=== PATIENT | female | born 1935 | race Two or more races ===

== ENCOUNTER 2017-06-19 19:28 | Inpatient (IN) | payer MEDICARE ==
[~2017-06-19] VITALS: Ht 162.6 cm; Wt 59.0 kg
[~2017-06-19 19:28] MED LIST: NKM
[2017-06-19 19:30] VITALS: BP 138/78
--- NOTE | 2017-06-19 20:13 | Emergency Room Report ---
History of Present Illness General Chief Complaint: Pain Source: Patient, EMS Present Illness HPI This is a 80-year-old female with history of high blood pressure. She's been feeling weak for the last 2 weeks. Having a hard time getting in and out of her chair. She's been increasing edema. No fever or chills. Generalized body pain. No nausea no vomiting. No chest pain. Similar symptom in the past. No other complaint. Allergies: Coded Allergies: CODEINE (Verified Allergy, Unknown, 06/19/17) LATEX (Verified Allergy, Unknown, 06/19/17) PENICILLINS (Verified Allergy, Unknown, 06/19/17) Patient History Past Medical History: see triage record, old chart reviewed, HTN Past Surgical History: other Pertinent Family History: none Social History: Denies: smoking Now: No Immunizations: other Reviewed Nursing Documentation: PMH: Agreed, PSxH: Agreed Nursing Documentation-PMH Past Medical History: No History, Except For Hx Cardiac Problems: Yes - MURMUR, HF. "BLOCKAGE" Hx Diabetes: Yes Review of Systems Constitutional: Reports: weakness Eye: Denies: blurred vision, eye pain ENT: Denies: ear pain, nose congestion, throat swelling Respiratory: Denies: cough, shortness of breath Cardiovascular: Denies: chest pain, palpitations Gastrointestinal: Denies: abdominal pain, diarrhea, nausea, vomiting Musculoskeletal: Denies: back pain, joint pain Skin: Denies: rash Neurological: Denies: headache, numbness Endocrine: Denies: increased thirst, increased urine Hematologic/Lymphatic: Denies: easy bruising All Other Systems: negative except mentioned in HPI Physical Exam Vital Signs Date Time Temp Pulse Resp B/P Pulse Ox O2 Delivery O2 Flow Rate FiO2 06/19/17 19:17 98.4 78 16 138/78 98 Room Air vitals normal Sp02 EP Interpretation: reviewed, normal General Appearance: well appearing, no apparent distress, alert Head: normocephalic, atraumatic Eyes: bilateral eye EOMI, bilateral eye PERRL ENT: hearing grossly normal, normal pharynx Neck: full range of motion, supple, no meningismus Respiratory: chest non-tender, lungs clear, normal breath sounds Cardiovascular #1: regular rate, rhythm, no murmur Gastrointestinal: normal bowel sounds, non tender, no mass, no organomegaly, no bruit, non-distended Musculoskeletal: back normal, normal range of motion, other - 2+ edema Neurologic: alert, oriented x3 Psychiatric: mood/affect normal Skin: warm/dry Medical Decision Making Diagnostic Impression: Primary Impression: Failure to thrive in adult Additional Impressions: Polymyalgia rheumatica syndrome Pedal edema Hyperglycemia due to type 2 diabetes mellitus Qualified Codes: E11.65 - Type 2 diabetes mellitus with hyperglycemia Proteinuria Qualified Codes: R80.9 - Proteinuria, unspecified Dehydration ER Course Patient present with generalize weakness and inability to get out of chair or bed. Sedimentation rate elevated. She probably has PMR. Steroid initiated. No evidence of infection. No evidence of ACS, PE, dissection. She has bilateral pedal edema sole DVT unlikely. She's she lives alone, will admit for further workup and possible SNF placement. I contacted Dr. Fitzgerald for admission and Dr. Cerna for orders. Lab Results Impression labs with elevated sedimentation rat EKG Diagnostic Results EKG Time: 20:13 Rate: normal Rhythm: NSR ST Segments: no acute changes Rhythm Strip Diag. Results Rhythm Strip Time: 20:13 EP Interpretation: yes Rate: 97 Rhythm: NSR, no PVC's, no ectopy Chest X-Ray Diagnostic Results Chest X-Ray Diagnostic Results : Chest X-Ray Ordered: Yes # of Views/Limited/Complete: 1 View Indication: Shortness of Breath EP Interpretation: Yes Interpretation: no consolidation, no effusion, no pneumothorax, no acute cardiopulmonary disease Impression: No acute disease Last Vital Signs Date Time Temp Pulse Resp B/P Pulse Ox O2 Delivery O2 Flow Rate FiO2 06/19/17 19:17 98.4 78 16 138/78 98 Room Air Status: improved Disposition: ADMITTED INPATIENT Condition: Serious TRAV LEDEZMA M.D. Jun 19, 2017 20:13
[2017-06-19 20:26] LABS: BASOPHILS % (AUTO) 1.2 % (0.0-2.0); EOSINOPHILS % (AUTO) 0.6 % (0.0-3.0); LYMPHOCYTES % (AUTO) 11.4 % (20.0-45.0); MEAN CORPUSCULAR HGB CONC 35.2 G/DL (32.0-36.0); MEAN CORPUSCULAR VOLUME 85 FL (80-99); MEAN PLATELET VOLUME 10.9 FL (6.5-10.1); MONOCYTES % (AUTO) 9.7 % (1.0-10.0); PLATELET COUNT 188 K/UL (150-450); RED BLOOD COUNT 4.18 M/UL (4.20-5.40); RED CELL DISTRIBUTION WIDTH 11.7 % (11.6-14.8); WHITE BLOOD COUNT 11.8 K/UL (4.8-10.8)
[2017-06-19 20:35] LABS: INR 1.1 (0.9-1.1); PROTHROMBIN TIME 11.4 SEC (9.30-11.50)
[2017-06-19 20:41] LABS: TROPONIN I < 0.30 ng/mL (<=0.30)
[2017-06-19 20:44] LABS: ALANINE AMINOTRANSFERASE 12 U/L (3-33); ALBUMIN/GLOBULIN RATIO 0.9 (1.0-2.7); ANION GAP 18 (5-15); ASPARTATE AMINO TRANSFERASE 22 U/L (5-40); CALCIUM 10.2 mg/dL (8.6-10.2); CARBON DIOXIDE 26 mEQ/L (20-30); CHLORIDE 95 mEQ/L (98-107); CREATININE 1.1 mg/dL (0.5-0.9); HEMOLYSIS 34; POTASSIUM 3.5 mEQ/L (3.4-4.9); SODIUM 139 mEQ/L (135-145); TOTAL PROTEIN 7.6 g/dL (6.6-8.7)
[2017-06-19 20:55] LABS: CKMB 4.7 ng/mL (< 3.8)
[2017-06-19 20:58] LABS: BILIRUBIN,DIRECT 0.3 mg/dL (0.1-0.3)
[2017-06-19 21:13] LABS: APPEARANCE,URINE CLEAR; KETONES,URINE 2+ (NEGATIVE); LEUKOCYTE ESTERASE ,URINE NEGATIVE (NEGATIVE); NITRITE,URINE NEGATIVE (NEGATIVE); PH,URINE 5 (4.5-8.0); PROTEIN,URINE 2+ (NEGATIVE); UROBILINOGEN,URINE NORMAL MG/DL (0.0-1.0)
[2017-06-19 21:30] VITALS: BP 154/80
[2017-06-19 21:32] LABS: BACTERIA,URINE FEW /HPF; RBC,URINE 0-2 /HPF (0 - 2); SQUAMOUS EPITHELIAL CELL,UR FEW /LPF (NONE/OCC); WBC,URINE 0-2 /HPF (0 - 2)
[2017-06-19] MEDS ORDERED: PredniSONE 20mg tab ORAL ONE (21:45)
[2017-06-19] MEDS ORDERED: Miralax 17gm pkt ORAL PRN (22:15)
[2017-06-19] MEDS ORDERED: Zolpidem 5mg tab ORAL PRN (22:15)
[2017-06-19] MEDS ORDERED: Mylanta II UD 30ml ORAL PRN (22:15)
[2017-06-19] MEDS ORDERED: LORazepam Inj 2mg/ml 1ml IV PRN (22:15)
[2017-06-19 22:40] VITALS: BP 148/81
[2017-06-20] VITALS: BP 151/81
[2017-06-20 04:00] VITALS: BP 150/78
[2017-06-20] MEDS: NovoLOG Insulin Flexpen SUBQ SCH ×4 (05:51→21:17)
[2017-06-20 07:10] LABS: MEAN CORPUSCULAR HEMOGLOBIN 28.9 PG (27.0-31.0); MEAN CORPUSCULAR HGB CONC 33.8 G/DL (32.0-36.0); MEAN CORPUSCULAR VOLUME 85 FL (80-99); MEAN PLATELET VOLUME 10.7 FL (6.5-10.1); PLATELET COUNT 191 K/UL (150-450); RED BLOOD COUNT 3.94 M/UL (4.20-5.40); RED CELL DISTRIBUTION WIDTH 11.7 % (11.6-14.8); WHITE BLOOD COUNT 8.3 K/UL (4.8-10.8)
[2017-06-20 07:38] LABS: ALANINE AMINOTRANSFERASE 12 U/L (3-33); ANION GAP 16 (5-15); ASPARTATE AMINO TRANSFERASE 18 U/L (5-40); CALCIUM 9.3 mg/dL (8.6-10.2); CARBON DIOXIDE 28 mEQ/L (20-30); CHLORIDE 93 mEQ/L (98-107); CHOLESTEROL 128 mg/dL (< 200); CHOLESTEROL/HDL RATIO 3.3 (3.3-4.4); HEMOLYSIS 3; LDL CHOLESTEROL (CALC.) 75 mg/dL (60-99); POTASSIUM 3.4 mEQ/L (3.4-4.9); SODIUM 137 mEQ/L (135-145); TOTAL PROTEIN 6.8 g/dL (6.6-8.7)
[2017-06-20 08:57] LABS: LYMPHOCYTES % (MANUAL) 10 % (20-45); NEUTROPHILS % (MANUAL) 88 % (45-75); TOTAL CELLS COUNTED 100
[2017-06-20 08:58] LABS: BAND NEUTROPHILS % (MANUAL) 0 % (0-8); BASOPHILS % (MANUAL) 0 % (0-2); EOSINOPHILS % (MANUAL) 0 % (0-3); HYPOCHROMASIA 1+; PLATELET ESTIMATE ADEQUATE; PLATELET MORPHOLOGY NORMAL
[2017-06-20] MEDS: Levemir Flexpen SUBQ SCH ×2 (09:35→21:18)
[2017-06-20] MEDS: Heparin 5000 units/ml inj SUBQ SCH ×2 (09:37→21:19)
--- NOTE | 2017-06-20 10:41 | Diagnostic Imaging Report ---
Indication: SOB Technique: One view of the chest Comparison: none Findings: Lungs and pleural spaces are clear. The heart size is normal. There is thoracic scoliotic deformity. There are cholecystectomy clips. Impression: No acute process
--- NOTE | 2017-06-20 11:59 | Neurology Progress Note ---
Objective Physical Exam Last Vital Signs Date Time Temp Pulse Resp B/P Pulse Ox O2 Delivery O2 Flow Rate FiO2 06/20/17 04:00 97.9 93 21 150/78 95 Room Air Laboratory Tests Test 06/19/17 20:10 06/19/17 21:00 06/20/17 05:55 White Blood Count 11.8 K/UL (4.8-10.8) H 8.3 K/UL (4.8-10.8) Red Blood Count 4.18 M/UL (4.20-5.40) L 3.94 M/UL (4.20-5.40) L Hemoglobin 12.5 G/DL (12.0-16.0) 11.4 G/DL (12.0-16.0) L Hematocrit 35.6 % (37.0-47.0) L 33.6 % (37.0-47.0) L Mean Corpuscular Volume 85 FL (80-99) 85 FL (80-99) Mean Corpuscular Hemoglobin 30.0 PG (27.0-31.0) 28.9 PG (27.0-31.0) Mean Corpuscular Hemoglobin Concent 35.2 G/DL (32.0-36.0) 33.8 G/DL (32.0-36.0) Red Cell Distribution Width 11.7 % (11.6-14.8) 11.7 % (11.6-14.8) Platelet Count 188 K/UL (150-450) 191 K/UL (150-450) Mean Platelet Volume 10.9 FL (6.5-10.1) H 10.7 FL (6.5-10.1) H Neutrophils (%) (Auto) 77.0 % (45.0-75.0) H % (45.0-75.0) Lymphocytes (%) (Auto) 11.4 % (20.0-45.0) L % (20.0-45.0) Monocytes (%) (Auto) 9.7 % (1.0-10.0) % (1.0-10.0) Eosinophils (%) (Auto) 0.6 % (0.0-3.0) % (0.0-3.0) Basophils (%) (Auto) 1.2 % (0.0-2.0) % (0.0-2.0) Erythrocyte Sedimentation Rate 101 MM/HR (0-30) H Prothrombin Time 11.4 SEC (9.30-11.50) Prothromb Time International Ratio 1.1 (0.9-1.1) Activated Partial Thromboplast Time 30 SEC (23-33) Sodium Level 139 mEQ/L (135-145) 137 mEQ/L (135-145) Potassium Level 3.5 mEQ/L (3.4-4.9) 3.4 mEQ/L (3.4-4.9) Chloride Level 95 mEQ/L (98-107) L 93 mEQ/L (98-107) L Carbon Dioxide Level 26 mEQ/L (20-30) 28 mEQ/L (20-30) Anion Gap 18 (5-15) H 16 (5-15) H Blood Urea Nitrogen 26 mg/dL (7-23) H 26 mg/dL (7-23) H Creatinine 1.1 mg/dL (0.5-0.9) H 1.0 mg/dL (0.5-0.9) H Estimat Glomerular Filtration Rate mL/min (>60) mL/min (>60) Glucose Level 264 mg/dL (74-106) H 471 mg/dL (74-106) #H Calcium Level 10.2 mg/dL (8.6-10.2) 9.3 mg/dL (8.6-10.2) Total Bilirubin 1.1 mg/dL (0.0-1.2) 0.6 mg/dL (0.0-1.2) Direct Bilirubin 0.3 mg/dL (0.1-0.3) Aspartate Amino Transf (AST/SGOT) 22 U/L (5-40) 18 U/L (5-40) Alanine Aminotransferase (ALT/SGPT) 12 U/L (3-33) 12 U/L (3-33) Alkaline Phosphatase 73 U/L (35-104) 87 U/L (35-104) Total Creatine Kinase 248 U/L (26-140) H Creatine Kinase MB 4.7 ng/mL (< 3.8) H Creatine Kinase MB Relative Index 1.8 Troponin I < 0.30 ng/mL (<=0.30) Pro-B-Type Natriuretic Peptide 285 pg/mL (0-450) Total Protein 7.6 g/dL (6.6-8.7) 6.8 g/dL (6.6-8.7) Albumin 3.6 g/dL (3.5-5.2) 3.4 g/dL (3.5-5.2) L Globulin 4.0 g/dL 3.4 g/dL Albumin/Globulin Ratio 0.9 (1.0-2.7) L 1.0 (1.0-2.7) Urine Color Pale yellow Urine Appearance Clear Urine pH 5 (4.5-8.0) Urine Specific [place] 1.010 (1.005-1.035) Urine Protein 2+ (NEGATIVE) H Urine Glucose (UA) 1+ (NEGATIVE) H Urine Ketones 2+ (NEGATIVE) H Urine Occult Blood 2+ (NEGATIVE) H Urine Nitrite Negative (NEGATIVE) Urine Bilirubin Negative (NEGATIVE) Urine Urobilinogen Normal MG/DL (0.0-1.0) Urine Leukocyte Esterase Negative (NEGATIVE) Urine RBC 0-2 /HPF (0 - 2) Urine WBC 0-2 /HPF (0 - 2) Urine Squamous Epithelial Cells Few /LPF (NONE/OCC) Urine Bacteria Few /HPF (NONE) Differential Total Cells Counted 100 Neutrophils % (Manual) 88 % (45-75) H Lymphocytes % (Manual) 10 % (20-45) L Monocytes % (Manual) 2 % (1-10) Eosinophils % (Manual) 0 % (0-3) Basophils % (Manual) 0 % (0-2) Band Neutrophils 0 % (0-8) Platelet Estimate Adequate Platelet Morphology Normal Hypochromasia 1+ Triglycerides Level 69 mg/dL (< 150) Cholesterol Level 128 mg/dL (< 200) LDL Cholesterol 75 mg/dL (60-99) HDL Cholesterol 39 mg/dL (> 60) Cholesterol/HDL Ratio 3.3 (3.3-4.4) Impression/Recommendations Problems: (1) Diabetic sensorimotor polyneuropathy (2) Paranoid ideation (3) Pedal edema (4) Polymyalgia rheumatica syndrome (5) Failure to thrive in adult (6) Hyperglycemia due to type 2 diabetes mellitus Status: unchanged Recommendations #[id number] SIMON Martinez Jun 20, 2017 11:59
[2017-06-20 12:00] VITALS: BP 142/77
--- NOTE | 2017-06-20 15:13 | Diagnostic Imaging Report ---
Indication: PAIN Technique: 3 views of the right shoulder Comparison: none Findings: There is inferior acromial spurring demonstrated. No acute fracture. Joint spaces are preserved. Bones are osteoporotic Impression:Osteoporosis. No definite acute process
--- NOTE | 2017-06-20 15:42 | Consultation ---
History of Present Illness General Date patient seen: Jun 20, 2017 Chief Complaint: Pain Reason for Consultation: inpatient management Present Illness HPI 80-year-old female with history of high blood pressure, DM presented to [facility] [place] with CC of feeling weak for the last 2 weeks. Having a hard time getting in and out of her chair and increasing edema. No fever or chills. Generalized body pain. No nausea no vomiting. No chest pain. Similar symptom in the past. No other complaint. Her ESR was > 100. Allergies: Coded Allergies: CODEINE (Verified Allergy, Unknown, 06/19/17) LATEX (Verified Allergy, Unknown, 06/19/17) PENICILLINS (Verified Allergy, Unknown, 06/19/17) Medication History Scheduled No Known Medications* (NKM - No Known Medications*), 0 ., (Reported) Patient History Healthcare decision maker Resuscitation status Chemical (Meds Only) Advanced Directive on File Past Medical/Surgical History Past Medical/Surgical History: (1) Diabetes mellitus (2) Hypertension (3) Paranoid ideation Review of Systems All Other Systems: negative except mentioned in HPI Physical Exam General Appearance: WD/WN, lethargic Lines, tubes and drains: peripheral, central line HEENT: normocephalic, atraumatic Neck: non-tender, normal alignment Respiratory/Chest: chest wall non-tender, lungs clear, no respiratory distress Breasts: no masses Cardiovascular/Chest: normal peripheral pulses, normal rate Abdomen: normal bowel sounds, non tender, soft, hyperactive bowel sounds Genitourinary/Rectal: normal genital exam, normal rectal exam Extremities: normal range of motion, non-tender Skin Exam: warm/dry 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, no motor/sensory deficits Last 24 Hour Vital Signs Date Time Temp Pulse Resp B/P Pulse Ox O2 Delivery O2 Flow Rate FiO2 06/20/17 12:00 97.8 91 20 142/77 97 Room Air 06/20/17 04:00 97.9 93 21 150/78 95 Room Air 06/20/17 00:00 97.7 100 21 151/81 97 Room Air 06/19/17 22:40 98.4 96 16 148/81 98 Room Air 06/19/17 22:40 98.4 96 16 148/81 98 Room Air 06/19/17 21:30 98.4 94 18 154/80 98 Room Air 06/19/17 19:30 98.4 98 16 138/78 98 Room Air 06/19/17 19:17 98.4 78 16 138/78 98 Room Air Intake and Output 06/19/17 06/20/17 19:00 07:00 Intake Total 250 ml Balance 250 ml Intake Other 250 ml # Voids 4 Laboratory Tests Test 06/19/17 20:10 06/19/17 21:00 06/20/17 05:55 White Blood Count 11.8 K/UL (4.8-10.8) H 8.3 K/UL (4.8-10.8) Red Blood Count 4.18 M/UL (4.20-5.40) L 3.94 M/UL (4.20-5.40) L Hemoglobin 12.5 G/DL (12.0-16.0) 11.4 G/DL (12.0-16.0) L Hematocrit 35.6 % (37.0-47.0) L 33.6 % (37.0-47.0) L Mean Corpuscular Volume 85 FL (80-99) 85 FL (80-99) Mean Corpuscular Hemoglobin 30.0 PG (27.0-31.0) 28.9 PG (27.0-31.0) Mean Corpuscular Hemoglobin Concent 35.2 G/DL (32.0-36.0) 33.8 G/DL (32.0-36.0) Red Cell Distribution Width 11.7 % (11.6-14.8) 11.7 % (11.6-14.8) Platelet Count 188 K/UL (150-450) 191 K/UL (150-450) Mean Platelet Volume 10.9 FL (6.5-10.1) H 10.7 FL (6.5-10.1) H Neutrophils (%) (Auto) 77.0 % (45.0-75.0) H % (45.0-75.0) Lymphocytes (%) (Auto) 11.4 % (20.0-45.0) L % (20.0-45.0) Monocytes (%) (Auto) 9.7 % (1.0-10.0) % (1.0-10.0) Eosinophils (%) (Auto) 0.6 % (0.0-3.0) % (0.0-3.0) Basophils (%) (Auto) 1.2 % (0.0-2.0) % (0.0-2.0) Erythrocyte Sedimentation Rate 101 MM/HR (0-30) H Prothrombin Time 11.4 SEC (9.30-11.50) Prothromb Time International Ratio 1.1 (0.9-1.1) Activated Partial Thromboplast Time 30 SEC (23-33) Sodium Level 139 mEQ/L (135-145) 137 mEQ/L (135-145) Potassium Level 3.5 mEQ/L (3.4-4.9) 3.4 mEQ/L (3.4-4.9) Chloride Level 95 mEQ/L (98-107) L 93 mEQ/L (98-107) L Carbon Dioxide Level 26 mEQ/L (20-30) 28 mEQ/L (20-30) Anion Gap 18 (5-15) H 16 (5-15) H Blood Urea Nitrogen 26 mg/dL (7-23) H 26 mg/dL (7-23) H Creatinine 1.1 mg/dL (0.5-0.9) H 1.0 mg/dL (0.5-0.9) H Estimat Glomerular Filtration Rate mL/min (>60) mL/min (>60) Glucose Level 264 mg/dL (74-106) H 471 mg/dL (74-106) #H Calcium Level 10.2 mg/dL (8.6-10.2) 9.3 mg/dL (8.6-10.2) Total Bilirubin 1.1 mg/dL (0.0-1.2) 0.6 mg/dL (0.0-1.2) Direct Bilirubin 0.3 mg/dL (0.1-0.3) Aspartate Amino Transf (AST/SGOT) 22 U/L (5-40) 18 U/L (5-40) Alanine Aminotransferase (ALT/SGPT) 12 U/L (3-33) 12 U/L (3-33) Alkaline Phosphatase 73 U/L (35-104) 87 U/L (35-104) Total Creatine Kinase 248 U/L (26-140) H Creatine Kinase MB 4.7 ng/mL (< 3.8) H Creatine Kinase MB Relative Index 1.8 Troponin I < 0.30 ng/mL (<=0.30) Pro-B-Type Natriuretic Peptide 285 pg/mL (0-450) Total Protein 7.6 g/dL (6.6-8.7) 6.8 g/dL (6.6-8.7) Albumin 3.6 g/dL (3.5-5.2) 3.4 g/dL (3.5-5.2) L Globulin 4.0 g/dL 3.4 g/dL Albumin/Globulin Ratio 0.9 (1.0-2.7) L 1.0 (1.0-2.7) Urine Color Pale yellow Urine Appearance Clear Urine pH 5 (4.5-8.0) Urine Specific [place] 1.010 (1.005-1.035) Urine Protein 2+ (NEGATIVE) H Urine Glucose (UA) 1+ (NEGATIVE) H Urine Ketones 2+ (NEGATIVE) H Urine Occult Blood 2+ (NEGATIVE) H Urine Nitrite Negative (NEGATIVE) Urine Bilirubin Negative (NEGATIVE) Urine Urobilinogen Normal MG/DL (0.0-1.0) Urine Leukocyte Esterase Negative (NEGATIVE) Urine RBC 0-2 /HPF (0 - 2) Urine WBC 0-2 /HPF (0 - 2) Urine Squamous Epithelial Cells Few /LPF (NONE/OCC) Urine Bacteria Few /HPF (NONE) Differential Total Cells Counted 100 Neutrophils % (Manual) 88 % (45-75) H Lymphocytes % (Manual) 10 % (20-45) L Monocytes % (Manual) 2 % (1-10) Eosinophils % (Manual) 0 % (0-3) Basophils % (Manual) 0 % (0-2) Band Neutrophils 0 % (0-8) Platelet Estimate Adequate Platelet Morphology Normal Hypochromasia 1+ Triglycerides Level 69 mg/dL (< 150) Cholesterol Level 128 mg/dL (< 200) LDL Cholesterol 75 mg/dL (60-99) HDL Cholesterol 39 mg/dL (> 60) Cholesterol/HDL Ratio 3.3 (3.3-4.4) Height (Feet): 5 Height (Inches): 4.00 Weight (Pounds): 130 Medications Current Medications Medications (Trade) Dose Ordered Sig/Piyush Route PRN Reason Start Time Stop Time Status Last Admin Dose Admin Acetaminophen (Tylenol) 650 mg Q4H PRN ORAL fever 06/19/17 22:15 07/19/17 22:14 Acetaminophen (Tylenol) 650 mg Q6H PRN ORAL Mild Pain (Pain Scale 1-3) 06/19/17 22:30 07/19/17 22:29 Al Hydroxide/Mg Hydroxide (Mylanta II) 30 ml Q6H PRN ORAL dyspepsia 06/19/17 22:15 07/19/17 22:14 Amlodipine Besylate (Norvasc) 5 mg DAILY ORAL 06/21/17 09:00 07/21/17 08:59 Clonidine HCl (Catapres) 0.1 mg Q2H PRN ORAL SBP > 170 06/20/17 15:00 07/20/17 14:59 Dextrose (Dextrose 50%) STAT PRN IV Hypoglycemia 06/19/17 22:15 07/19/17 22:14 Heparin Sodium (Porcine) (Heparin 5000 units/ml) 5,000 units EVERY 12 HOURS SUBQ 06/20/17 09:00 07/20/17 08:59 06/20/17 09:37 Insulin Aspart (NovoLOG) BEFORE MEALS AND HS SUBQ 06/20/17 06:30 07/20/17 06:29 06/20/17 11:23 Insulin Detemir (Levemir) 15 units Q12HR SUBQ 06/20/17 09:00 07/20/17 08:59 06/20/17 09:35 Lorazepam (Ativan 2mg/ml 1ml) 0.5 mg Q4H PRN IV For Anxiety 06/19/17 22:15 06/26/17 22:14 Ondansetron HCl (Zofran) 4 mg Q6H PRN IVP Nausea & Vomiting 06/19/17 22:15 07/19/17 22:14 Polyethylene Glycol (Miralax) 17 gm HSPRN PRN ORAL Constipation 06/19/17 22:15 07/19/17 22:14 Zolpidem Tartrate (Ambien) 5 mg HSPRN PRN ORAL Insomnia 06/19/17 22:15 07/19/17 22:14 Assessment/Plan Problem List: (1) Pedal edema ICD Codes: R60.0 - Localized edema SNOMED: 689322954 (2) Failure to thrive in adult ICD Codes: R62.7 - Adult failure to thrive SNOMED: 656921573, 71978003 (3) Diabetic sensorimotor polyneuropathy ICD Codes: E11.42 - Type 2 diabetes mellitus with diabetic polyneuropathy SNOMED: 71189591, 242634206 (4) Polymyalgia rheumatica syndrome ICD Codes: M35.3 - Polymyalgia rheumatica SNOMED: 43494830, 97746855 (5) Diabetes mellitus ICD Codes: E11.9 - Type 2 diabetes mellitus without complications SNOMED: 83391183 (6) Hypertension ICD Codes: I10 - Essential (primary) hypertension SNOMED: 59236749 Assessment/Plan pt/ ot neuro/ Rheumatology evaluation sliding scale check cpk f/u ESR f/u electrolytes SHAMEKA OVALLES Jun 20, 2017 15:42
[2017-06-20 16:00] VITALS: BP 144/77
--- NOTE | 2017-06-20 17:58 | Cardiology Report ---
APPROVED REPORT EXAM: Two-dimensional and M-mode echocardiogram with Doppler and color Doppler. INDICATION Left ventricular function M-Mode DIMENSIONS IVSd1.0 (0.7-1.1cm)Left Atrium (MM)3.8 (1.6-4.0cm) LVDd2.3 (3.5-5.6cm)Aortic Root2.8 (2.0-3.7cm) PWd1.1 (0.7-1.1cm)Aortic Cusp Exc.1.8 (1.5-2.0cm) LVDs0.4 (2.5-4.0cm) PWs1.1 cm Normal left ventricular chamber size, systolic function and wall motion. Left ventricular ejection fraction estimated to be 70-75%. Moderate left ventricular hypertrophy. No evidence of pericardial fat or effusion. All other cardiac chamber sizes are within normal limits. Focal aortic valve sclerosis with adequate cusp excursion Thickened mitral valve leaflets with normal excursion. Mitral annulus and aortic root calcification. Pulmonic valve not well visualized. Normal tricuspid valve structure. IVC is normal in size with physiologic collapse. A color flow and spectral Doppler study was performed and revealed: No aortic regurgitation. Mild mitral regurgitation. Left ventricular diastolic dysfunction grade 1. No tricuspid regurgitation. Tricuspid systolic velocities suggests peak right ventricular systolic pressure of 21 mmHg
--- NOTE | 2017-06-20 18:10 | Cardiology Report ---
APPROVED REPORT EKG Measurement Heart [id number] Sinus rhythm RBBB Arm lead reversal T wave abnormality, consider inferior ischemia T wave abnormality, consider RV strain Abnormal ECG
--- NOTE | 2017-06-20 19:15 | History and Physical Report ---
DATE OF ADMISSION: 06/19/2017 TIME SEEN: 1 p.m. CONSULTANTS: 1. Ashly Cerna M.D. 2. Alex Morris M.D. 3. Marco Antonio Potts M.D. CHIEF COMPLAINT: Failure to thrive, weakness, elevated ESR, diabetes, and hypertension. BRIEF HISTORY: The patient is a 80-year-old female, who lives at home by herself, presented with increased weakness and lethargy, not eating well, the patient diagnosed with the above, elevated ESR, admitted to medical floor for further treatment, currently slightly weak in bed, no complaints. PAST MEDICAL HISTORY: Includes diabetes and hypertension. PAST SURGICAL HISTORY: Gallbladder and hysterectomy. MEDICATIONS: Heparin, Levemir, NovoLog, Tylenol, MiraLax, Zofran, Ambien, Ativan, and Mylanta. ALLERGIES: Penicillin and codeine. SOCIAL HISTORY: No smoking. No alcohol. No intravenous drug abuse. FAMILY HISTORY: Noncontributory. REVIEW OF SYSTEMS: No chest pain. No shortness of breath. No nausea, vomiting, or diarrhea. PHYSICAL EXAMINATION: GENERAL: Calm in bed, alert and oriented x3, in no acute distress. VITAL SIGNS: Temperature is 97 degrees, pulse 91, respirations 20, and blood pressure 142/77. CARDIOVASCULAR: No murmurs. LUNGS: Distant and clear. ABDOMEN: Bowel sound positive. Nontender and nondistended. EXTREMITIES: No cyanosis, clubbing, or edema. NEUROLOGIC: Cranial nerves II through XII grossly intact. Deep tendon reflexes are 2+. Muscle strength is 4/5, slightly weak. LABORATORY DATA: Hemoglobin 11.4, otherwise CBC is normal. Chloride is 93. BUN and creatinine 23 and 1.0. Glucose is 471. INR is 1.1. Urinalysis, 2+ occult blood and 1+ glucose. ASSESSMENT: 1. Failure to thrive. 2. Weakness. 3. Anemia. 4. ESR elevation. 5. Diabetes with hyperglycemia. 6. Hypertension. PLAN: 1. Blood pressure and blood sugar control. 2. Dietary followup. 3. OT/OT. 4. Dietary evaluation. 5. CBC and BMP in the morning. Dr. Cerna, Dr. Morris, Dr. Marco Antonio Potts to consult. We will continue to follow this patient. Pranav Fitzgerald D.O. DR: OSCAR JOB#: [id number] CC:
[2017-06-20 20:00] VITALS: BP 153/85
--- NOTE | 2017-06-20 20:45 | Consultation ---
DATE OF CONSULTATION: 06/20/2017 NEUROLOGICAL CONSULTATION CONSULTING PHYSICIAN: Alex Morris M.D. REQUESTING PHYSICIAN: Pranav Fitzgerald D.O. HISTORY OF PRESENT ILLNESS: The patient is a 80-year-old female, seen in neurological consultation to evaluate progressive generalized weakness and pain. The patient indicated that symptoms have progressed within the last couple of weeks, that she is unable to get out of her bed, she developed swelling in her both feet and ankles. The patient was brought to the emergency room. Her vital signs were stable. Her initial diagnostic studies included chest x-ray with no acute process. There was thoracic scoliotic deformity noted and cholecystectomy clips noted. Laboratory work included CBC study with WBC 11.8. Sedimentation rate of 101. Coagulation panel was normal. Urinalysis, 2+ ketones, 2+ protein. Chemistry panel with elevated BUN of 26 and creatinine 1.1. Blood sugar 264. CK 248 and CK-MB 4.7. Normal lipid panel. The patient is started on steroids and repeat study revealed blood sugar of 471. Following admission until present, there were not much changes except slightly reduced swelling. Current treatment included torsemide, heparin, insulin, Tylenol p.r.n., Ativan p.r.n., Zofran p.r.n. 40 mg daily. The patient indicated that in the past she had a workmen's compensation injury to the right lower extremity following which she had a constant swelling in the right ankle. For several years she is suffering from intermittent off and on chest pain, soreness throughout the chest area, intermittent sharp pain " " . For the last couple weeks intermittent dry cough with chills, severe pain, numbness, and tingling in both upper and lower extremities, swelling on the both feet, involuntary jerks of lower extremities. Previously diagnosed with fibromyalgia, although other etiologies were also suggested. She had a brief trial of steroids in the past but felt that steroids are harming her so she stopped it but then again two months ago she was taken to [facility] Emergency Room, she was just followed the one week of steroids to give temporary relief. PAST MEDICAL HISTORY: History of hypertension and history of diabetes with diabetic polyneuropathy. She has history of hysterectomy , degenerative joint disease. MEDICATIONS: Treatment at home, the patient has no recollection except "water pill". FAMILY HISTORY: Noncontributory. SOCIAL HISTORY: The patient lives alone. She has a daughter who is in town who is very sick and has some sort of arthritis, unable to help her out. No alcohol. No drug abuse. Nonsmoker. REVIEW OF SYMPTOMS: A 14-point review of symptoms was obtained, this was negative except those in the history of present illness. PHYSICAL EXAMINATION: GENERAL: This is a well-developed, somewhat cachectic appearing female, lying comfortably in bed. VITAL SIGNS: Vital signs are stable. Blood pressure 150/78, temperature 97.9 degrees, and heart rate of 93. HEENT: Head, normocephalic. There is a palpable tenderness about the TMJs and base of skull. No deformities noted. NECK: Tender on palpation bilaterally. EXTREMITIES: Generalized aches and pain on palpation of both upper and lower extremities and upper and low back. Tenderness to palpation both ankles, swelling 2+ right ankle and 1+ left ankle. Peripheral pulses 1+, symmetric. MENTAL STATUS: She is alert and oriented x3 with no evidence of aphasia or apraxia, claiming that the doctors never paid attention to her. 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 CRANIAL NERVE II: Pupils are 2 mm responding to light and accommodation. Visual barrientos are full on confrontation. Fundi poorly visualized. CRANIAL NERVE V: Normal corneal responses. CRANIAL NERVE VII: No facial asymmetry. CRANIAL NERVE VIII: Normal hearing. CRANIAL NERVE IX THROUGH XII: Tongue is in midline. Symmetric palate elevation. MOTOR EXAMINATION: Limited range of motion of the right shoulder due to pain and deformity. Able to lift arms against the gravity, but felt uncomfortable with aches and pains. Strength diffusely decreased 5-/5. Deep tendon reflexes absent in both biceps, triceps, brachioradialis, knee, and ankle jerks. Plantar responses flexor. SENSORY EXAMINATION: Decreased response to pin stimulation below the knees with reduced proprioception both feet. COORDINATION: Clumsy [id number] and [id number] test bilaterally. GAIT: Able to stand up and walk, but with assistance. IMPRESSION: 1. Chronic generalized aches and pains, unknown etiology, rule out collagen vascular disease, rule out polymyalgia rheumatica, rule out fibromyalgia. 2. Diabetic polyneuropathy. 3. Renal insufficiency. 4. Insulin-dependent diabetes mellitus. 5. Hypertension. 6. Paranoid ideation. 7. History of cervical and lumbar diskogenic disease and thoracic scoliosis. 8. Malnutrition. DISCUSSION: The patient has a persistent diabetic neuropathy, currently presenting with sensory loss and areflexia on both upper and lower extremities. In addition, the patient has intermittent generalized aches and pains, elevated sedimentation rate, suspected to have collagen vascular disease, polymyalgia rheumatica, certainly rheumatology assessment for more detailed evaluation will be necessary. Steroids initiated but producing severe hyperglycemia. We will request PT/OT, speech therapy, and nutrition. 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 Treatment will include steroids as per Rheumatology, in addition to aspirin and Ecotrin. Get a Psychiatry evaluation to assess underlying paranoid delusion. Thank you for allowing me to see this interesting patient in neurological consultation. Alex Morris M.D. DR: PARRISH JOB#: [id number] CC:
--- NOTE | 2017-06-20 21:16 | Cardiac Electrophysiology PN ---
Subjective Subjective [id number] Objective Last 24 Hour Vital Signs Date Time Temp Pulse Resp B/P Pulse Ox O2 Delivery O2 Flow Rate FiO2 06/20/17 20:00 97.2 20 153/85 99 Room Air 06/20/17 16:00 97.0 85 16 144/77 99 Room Air 06/20/17 12:00 97.8 91 20 142/77 97 Room Air 06/20/17 04:00 97.9 93 21 150/78 95 Room Air 06/20/17 00:00 97.7 100 21 151/81 97 Room Air 06/19/17 22:40 98.4 96 16 148/81 98 Room Air 06/19/17 22:40 98.4 96 16 148/81 98 Room Air 06/19/17 21:30 98.4 94 18 154/80 98 Room Air Intake and Output 06/19/17 06/20/17 19:00 07:00 Intake Total 250 ml Balance 250 ml Other 250 ml # Voids 4 Laboratory Tests Test 06/20/17 05:55 White Blood Count 8.3 K/UL (4.8-10.8) Red Blood Count 3.94 M/UL (4.20-5.40) L Hemoglobin 11.4 G/DL (12.0-16.0) L Hematocrit 33.6 % (37.0-47.0) L Mean Corpuscular Volume 85 FL (80-99) Mean Corpuscular Hemoglobin 28.9 PG (27.0-31.0) Mean Corpuscular Hemoglobin Concent 33.8 G/DL (32.0-36.0) Red Cell Distribution Width 11.7 % (11.6-14.8) Platelet Count 191 K/UL (150-450) Mean Platelet Volume 10.7 FL (6.5-10.1) H Neutrophils (%) (Auto) % (45.0-75.0) Lymphocytes (%) (Auto) % (20.0-45.0) Monocytes (%) (Auto) % (1.0-10.0) Eosinophils (%) (Auto) % (0.0-3.0) Basophils (%) (Auto) % (0.0-2.0) Differential Total Cells Counted 100 Neutrophils % (Manual) 88 % (45-75) H Lymphocytes % (Manual) 10 % (20-45) L Monocytes % (Manual) 2 % (1-10) Eosinophils % (Manual) 0 % (0-3) Basophils % (Manual) 0 % (0-2) Band Neutrophils 0 % (0-8) Platelet Estimate Adequate Platelet Morphology Normal Hypochromasia 1+ Sodium Level 137 mEQ/L (135-145) Potassium Level 3.4 mEQ/L (3.4-4.9) Chloride Level 93 mEQ/L (98-107) L Carbon Dioxide Level 28 mEQ/L (20-30) Anion Gap 16 (5-15) H Blood Urea Nitrogen 26 mg/dL (7-23) H Creatinine 1.0 mg/dL (0.5-0.9) H Estimat Glomerular Filtration Rate mL/min (>60) Glucose Level 471 mg/dL (74-106) #H Calcium Level 9.3 mg/dL (8.6-10.2) Total Bilirubin 0.6 mg/dL (0.0-1.2) Aspartate Amino Transf (AST/SGOT) 18 U/L (5-40) Alanine Aminotransferase (ALT/SGPT) 12 U/L (3-33) Alkaline Phosphatase 87 U/L (35-104) Total Protein 6.8 g/dL (6.6-8.7) Albumin 3.4 g/dL (3.5-5.2) L Globulin 3.4 g/dL Albumin/Globulin Ratio 1.0 (1.0-2.7) Triglycerides Level 69 mg/dL (< 150) Cholesterol Level 128 mg/dL (< 200) LDL Cholesterol 75 mg/dL (60-99) HDL Cholesterol 39 mg/dL (> 60) Cholesterol/HDL Ratio 3.3 (3.3-4.4) KARIE FAN Jun 20, 2017 21:16
[2017-06-21] VITALS: BP 136/60
[2017-06-21 04:00] VITALS: BP 141/68
--- NOTE | 2017-06-21 05:45 | Consultation ---
DATE OF CONSULTATION: NOTE: POOR AUDIO QUALITY ENDOCRINOLOGY CONSULTATION REFERRING PHYSICIAN: Pranav Fitzgerald D.O. CONSULTING PHYSICIAN: Grant Camacho M.D. REASON FOR CONSULTATION: I was asked to see this 80-year-old black female by Dr. Pranav Fitzgerald in endocrinology consultation for evaluation and management for type 2 diabetes mellitus out of control. PERTINENT HISTORY: The patient has been diabetic for several years, on various doses of medications requested. She is put on dietary control, but she insulin several years for glucose blood work q.12 h. The patient denies polyuria, polydipsia, neuropathic pain in the lower extremities. PAST MEDICAL HISTORY: . FAMILY HISTORY: Unremarkable. PERSONAL HISTORY: Negative for tobacco, alcohol, or drug abuse. REVIEW OF SYSTEMS: A 14-point review is unremarkable. PHYSICAL EXAMINATION: GENERAL: The patient is in no acute distress. VITAL SIGNS: Blood pressure 115/85, pulse and temperature 97.3 degrees. HEENT: . Ears, nose, and throat are negative. NECK: No thyroid gland is palpable. LUNGS: Clear. CARDIOVASCULAR: Heart sounds are regular. ABDOMEN: Soft. Bowel sounds present. EXTREMITIES: . Reflexes intact, but toes downgoing to plantar stimulation. . ASSESSMENT: 1. Diabetes type 2, uncontrolled. 2. Diabetic peripheral neuropathy. PLAN: We will continue the patient with Levemir 10 units q.12 h. and NovoLog q.i.d. before meals and at bedtime. She is stable for discharge on 06/21/2017 by her primary physician. The patient's hemoglobin A1c level is pending. Grant Camacho M.D. DR: Naida JOB#: [id number] CC:
[2017-06-21] MEDS: NovoLOG Insulin Flexpen SUBQ SCH ×4 (06:12→21:42)
--- NOTE | 2017-06-21 07:00 | Consultation ---
DATE OF CONSULTATION: 06/20/2017 CARDIOLOGY CONSULTATION REFERRING PHYSICIAN: Pranav Fitzgerald D.O. REASON FOR CONSULTATION: Management of hypertension. HISTORY OF PRESENT ILLNESS: The patient is a 80-year-old lady, who developed progressive weakness for the last couple of weeks. The patient has scoliotic deformity in her thorax, status post hysterectomy. In the emergency room, the patient's sedimentation was more than 100 and WBCs of 11.8, also history of right ankle swelling due to injury to the right lower extremity. The patient also is complaining of tingling and numbness in both upper and lower extremities and swelling of both feet. The patient has a history of fibromyalgia as well for which she was treated with steroids in the past. REVIEW OF SYSTEMS: Negative other than what was mentioned in the history of present illness. PAST MEDICAL HISTORY: 1. Hypertension, diabetes, and diabetic neuropathy. 2. Degenerative joint disease. 3. History of hysterectomy. MEDICATION: Per reconciliation. FAMILY HISTORY: Noncontributory. SOCIAL HISTORY: She lives alone. Does not smoke or drink alcohol. Nonsmoker. PHYSICAL EXAMINATION: VITAL SIGNS: Blood pressure is 122/85, pulse is 85, respirations 20, and temperature is 97.2 degrees. HEAD AND NECK: Shows no JVD. LUNGS: Decreased breath sounds. CARDIOVASCULAR: Regular S1 and S2 with no gallop. ABDOMEN: Soft. EXTREMITIES: There is 1+ pitting edema. LABORATORY DATA: . Sodium 137, potassium 3.4, BUN of 26, creatinine 1, and glucose is 471. Troponin is negative. CK is 248. Repeat INR is 1.1. Urinalysis is negative. ASSESSMENT AND PLAN: 1. Hypertension. The patient was started on Norvasc 5 mg daily. Patient on clonidine 0.1 mg every two hours p.r.n. If the blood pressure is still elevated, we will increase Norvasc to 5 mg b.i.d. The patient also underwent an echocardiogram and preliminary report showed that the patient's ejection fraction is 70% to 75%. 2. Diabetes. 3. Generalized weakness. 4. Sedimentation rate of more than 100. 5. History of paranoid ideation. 6. Polymyalgia rheumatica. 7. Diabetic polyneuropathy. Thank you very much, Dr. Fitzgerald, for allowing me to participate in the care of this patient. Please do not hesitate to contact me for any questions regarding my evaluation. Marco Antonio Potts M.D. DR: Reese JOB#: [id number] CC:
[2017-06-21 08:00] VITALS: BP 130/50
[2017-06-21] MEDS: Heparin 5000 units/ml inj SUBQ SCH ×2 (09:40→21:43)
[2017-06-21] MEDS: Levemir Flexpen SUBQ SCH ×2 (09:41→21:42)
[2017-06-21 10:49] LABS: BASOPHILS % (AUTO) 0.7 % (0.0-2.0); EOSINOPHILS % (AUTO) 2.2 % (0.0-3.0); LYMPHOCYTES % (AUTO) 26.6 % (20.0-45.0); MEAN CORPUSCULAR HEMOGLOBIN 27.6 PG (27.0-31.0); MEAN CORPUSCULAR HGB CONC 32.8 G/DL (32.0-36.0); MEAN CORPUSCULAR VOLUME 84 FL (80-99); MEAN PLATELET VOLUME 10.6 FL (6.5-10.1); MONOCYTES % (AUTO) 9.3 % (1.0-10.0); NEUTROPHILS % (AUTO) 61.2 % (45.0-75.0); PLATELET COUNT 209 K/UL (150-450); RED BLOOD COUNT 4.09 M/UL (4.20-5.40); RED CELL DISTRIBUTION WIDTH 11.4 % (11.6-14.8); WHITE BLOOD COUNT 10.9 K/UL (4.8-10.8)
[2017-06-21 11:05] LABS: ANION GAP 12 (5-15); CALCIUM 9.2 mg/dL (8.6-10.2); CARBON DIOXIDE 31 mEQ/L (20-30); CHLORIDE 101 mEQ/L (98-107); CREATININE 0.7 mg/dL (0.5-0.9); HEMOLYSIS 1; SODIUM 144 mEQ/L (135-145)
[2017-06-21 11:06] LABS: CRP QUANT 6.7 mg/dL (< 0.5)
[2017-06-21 11:09] LABS: POTASSIUM 2.6 mEQ/L (3.4-4.9)
[2017-06-21 11:16] LABS: THYROID STIMULATING HORMONE 1.52 uIU/mL (0.300-4.500)
[2017-06-21 12:00] VITALS: BP 155/86
--- NOTE | 2017-06-21 12:36 | General Progress Note ---
Assessment/Plan Problem List: (1) Proteinuria ICD Codes: R80.9 - Proteinuria, unspecified SNOMED: 89876511 Qualifiers: Qualified Codes: R80.9 - Proteinuria, unspecified (2) Pedal edema ICD Codes: R60.0 - Localized edema SNOMED: 111897468 (3) Polymyalgia rheumatica syndrome ICD Codes: M35.3 - Polymyalgia rheumatica SNOMED: 55706878, 08201803 (4) Dehydration ICD Codes: E86.0 - Dehydration SNOMED: 61843213, 32654360 (5) Failure to thrive in adult ICD Codes: R62.7 - Adult failure to thrive SNOMED: 765302291, 63365383 (6) Diabetic sensorimotor polyneuropathy ICD Codes: E11.42 - Type 2 diabetes mellitus with diabetic polyneuropathy SNOMED: 80763396, 053287314 (7) Hyperglycemia due to type 2 diabetes mellitus ICD Codes: E11.65 - Type 2 diabetes mellitus with hyperglycemia SNOMED: 558051242540320, 87438496 Qualifiers: Qualified Codes: E11.65 - Type 2 diabetes mellitus with hyperglycemia (8) Diabetes mellitus ICD Codes: E11.9 - Type 2 diabetes mellitus without complications SNOMED: 92556043 (9) Hypertension ICD Codes: I10 - Essential (primary) hypertension SNOMED: 31934882 Status: stable, progressing, tolerating diet Assessment/Plan ot pt diet bp bs control cbc bmp am promise ltach eval Subjective Constitutional: Reports: weakness Allergies: Coded Allergies: CODEINE (Verified Allergy, Unknown, 06/19/17) LATEX (Verified Allergy, Unknown, 06/19/17) PENICILLINS (Verified Allergy, Unknown, 06/19/17) All Systems: reviewed and negative except above Subjective calm weak in bed Objective Last 24 Hour Vital Signs Date Time Temp Pulse Resp B/P Pulse Ox O2 Delivery O2 Flow Rate FiO2 06/21/17 09:38 91 130/50 06/21/17 08:00 97.2 91 20 130/50 98 Room Air 06/21/17 04:00 98.2 77 20 141/68 100 Room Air 06/21/17 00:00 97.6 75 20 136/60 100 Room Air 06/20/17 20:00 97.2 20 153/85 99 Room Air 06/20/17 16:00 97.0 85 16 144/77 99 Room Air Intake and Output 06/20/17 06/21/17 19:00 07:00 Intake Total 800 ml Balance 800 ml Intake Oral 800 ml # Voids 3 6 Laboratory Tests 06/21/17 10:40: White Blood Count 10.9H, Red Blood Count 4.09L, Hemoglobin 11.3L, Hematocrit 34.4L, Mean Corpuscular Volume 84, Mean Corpuscular Hemoglobin 27.6, Mean Corpuscular Hemoglobin Concent 32.8, Red Cell Distribution Width 11.4L, Platelet Count 209, Mean Platelet Volume 10.6H, Neutrophils (%) (Auto) 61.2, Lymphocytes (%) (Auto) 26.6, Monocytes (%) (Auto) 9.3, Eosinophils (%) (Auto) 2.2, Basophils (%) (Auto) 0.7, Sodium Level 144, Potassium Level 2.6*L, Chloride Level 101, Carbon Dioxide Level 31H, Anion Gap 12, Blood Urea Nitrogen 20, Creatinine 0.7, Estimat Glomerular Filtration Rate , Glucose Level 118#H, Calcium Level 9.2, C-Reactive Protein, Quantitative 6.7H, Vitamin B12 Level 603 , Vitamin D 25-Hydroxy [Pending], 25-Hydroxy Vitamin D2 [Pending], 25-Hydroxy Vitamin D3 [Pending], Alpha-Tocopherol Level [Pending], Thyroid Stimulating Hormone (TSH) 1.520, Rheumatoid Factor Screen [Pending], Anti-Nuclear Antibody Screen [Pending], c-ANCA Titer [Pending], p-ANCA Titer [Pending] Height (Feet): 5 Height (Inches): 4.00 Weight (Pounds): 130 General Appearance: lethargic EENT: normal ENT inspection Neck: normal alignment Cardiovascular: normal peripheral pulses, normal rate, regular rhythm Respiratory/Chest: chest wall non-tender, lungs clear, normal breath sounds Abdomen: normal bowel sounds, non tender, soft Extremities: normal inspection Edema: no edema noted Arm (L), no edema noted Arm (R), no edema noted Leg (L), no edema noted Leg (R), no edema noted Pedal (L), no edema noted Pedal (R), no edema noted Generalized Neurologic: responsive, motor weakness Skin: normal pigmentation, warm/dry CATARINA CHILDS Jun 21, 2017 12:36
[2017-06-21 15:49] VITALS: BP 141/77
--- NOTE | 2017-06-21 18:06 | Cardiac Electrophysiology PN ---
Assessment/Plan Assessment/Plan 1. Hypertension. Continue Norvasc 5 mg daily and clonidine 0.1 mg every two hours p.r.n. Echocardiogram showed that the patient's ejection fraction is 70% to 75%. 2. Diabetes. 3. Generalized weakness. 4. Sedimentation rate of more than 100. 5. History of paranoid ideation. 6. Polymyalgia rheumatica. 7. Diabetic polyneuropathy. Subjective Subjective Transferred to [facility]. HAs generalized body ache but no chest pain or SOB. Objective Last 24 Hour Vital Signs Date Time Temp Pulse Resp B/P Pulse Ox O2 Delivery O2 Flow Rate FiO2 06/21/17 15:49 96.1 86 18 141/77 98 Room Air 06/21/17 12:00 96.4 92 18 155/86 97 Room Air 06/21/17 09:38 91 130/50 06/21/17 08:00 97.2 91 20 130/50 98 Room Air 06/21/17 04:00 98.2 77 20 141/68 100 Room Air 06/21/17 00:00 97.6 75 20 136/60 100 Room Air 06/20/17 20:00 97.2 20 153/85 99 Room Air Intake and Output 06/20/17 06/21/17 19:00 07:00 Intake Total 800 ml Balance 800 ml Intake Oral 800 ml # Voids 3 6 Laboratory Tests Test 06/21/17 10:40 White Blood Count 10.9 K/UL (4.8-10.8) H Red Blood Count 4.09 M/UL (4.20-5.40) L Hemoglobin 11.3 G/DL (12.0-16.0) L Hematocrit 34.4 % (37.0-47.0) L Mean Corpuscular Volume 84 FL (80-99) Mean Corpuscular Hemoglobin 27.6 PG (27.0-31.0) Mean Corpuscular Hemoglobin Concent 32.8 G/DL (32.0-36.0) Red Cell Distribution Width 11.4 % (11.6-14.8) L Platelet Count 209 K/UL (150-450) Mean Platelet Volume 10.6 FL (6.5-10.1) H Neutrophils (%) (Auto) 61.2 % (45.0-75.0) Lymphocytes (%) (Auto) 26.6 % (20.0-45.0) Monocytes (%) (Auto) 9.3 % (1.0-10.0) Eosinophils (%) (Auto) 2.2 % (0.0-3.0) Basophils (%) (Auto) 0.7 % (0.0-2.0) Sodium Level 144 mEQ/L (135-145) Potassium Level 2.6 mEQ/L (3.4-4.9) *L Chloride Level 101 mEQ/L (98-107) Carbon Dioxide Level 31 mEQ/L (20-30) H Anion Gap 12 (5-15) Blood Urea Nitrogen 20 mg/dL (7-23) Creatinine 0.7 mg/dL (0.5-0.9) Estimat Glomerular Filtration Rate mL/min (>60) Glucose Level 118 mg/dL (74-106) #H Calcium Level 9.2 mg/dL (8.6-10.2) C-Reactive Protein, Quantitative 6.7 mg/dL (< 0.5) H Vitamin B12 Level 603 pg/mL (211-946) Vitamin D 25-Hydroxy Pending 25-Hydroxy Vitamin D2 Pending 25-Hydroxy Vitamin D3 Pending Alpha-Tocopherol Level Pending Thyroid Stimulating Hormone (TSH) 1.520 uIU/mL (0.300-4.500) Rheumatoid Factor Screen Pending Anti-Nuclear Antibody Screen Pending c-ANCA Titer Pending p-ANCA Titer Pending Objective HEAD AND NECK: Shows no JVD. LUNGS: Decreased breath sounds. CARDIOVASCULAR: Regular S1 and S2 with no gallop. ABDOMEN: Soft. EXTREMITIES: There is 1+ pitting edema. KARIE FAN Jun 21, 2017 18:06
--- NOTE | 2017-06-21 18:49 | Pulmonology Progress Note ---
Assessment/Plan Problems: (1) Pedal edema (2) Failure to thrive in adult (3) Diabetic sensorimotor polyneuropathy (4) Polymyalgia rheumatica syndrome (5) Diabetes mellitus (6) Hypertension Assessment/Plan symptomatic treatment pain management f/e ESR bp management sliding scale dvt prophylaxis Subjective ROS Limited/Unobtainable: No Interval Events: still c/o tingling Allergies: Coded Allergies: CODEINE (Verified Allergy, Unknown, 06/19/17) LATEX (Verified Allergy, Unknown, 06/19/17) PENICILLINS (Verified Allergy, Unknown, 06/19/17) Objective Last 24 Hour Vital Signs Date Time Temp Pulse Resp B/P Pulse Ox O2 Delivery O2 Flow Rate FiO2 06/21/17 15:49 96.1 86 18 141/77 98 Room Air 06/21/17 12:00 96.4 92 18 155/86 97 Room Air 06/21/17 09:38 91 130/50 06/21/17 08:00 97.2 91 20 130/50 98 Room Air 06/21/17 04:00 98.2 77 20 141/68 100 Room Air 06/21/17 00:00 97.6 75 20 136/60 100 Room Air 06/20/17 20:00 97.2 20 153/85 99 Room Air Intake and Output 06/20/17 06/21/17 19:00 07:00 Intake Total 800 ml Balance 800 ml Intake Oral 800 ml # Voids 3 6 General Appearance: cachetic HEENT: normocephalic, atraumatic Respiratory/Chest: chest wall non-tender, lungs clear Breasts: no masses Cardiovascular: normal peripheral pulses Abdomen: normal bowel sounds, soft, non tender Genitourinary: normal external genitalia Laboratory Tests 06/21/17 10:40: White Blood Count 10.9H, Red Blood Count 4.09L, Hemoglobin 11.3L, Hematocrit 34.4L, Mean Corpuscular Volume 84, Mean Corpuscular Hemoglobin 27.6, Mean Corpuscular Hemoglobin Concent 32.8, Red Cell Distribution Width 11.4L, Platelet Count 209, Mean Platelet Volume 10.6H, Neutrophils (%) (Auto) 61.2, Lymphocytes (%) (Auto) 26.6, Monocytes (%) (Auto) 9.3, Eosinophils (%) (Auto) 2.2, Basophils (%) (Auto) 0.7, Sodium Level 144, Potassium Level 2.6*L, Chloride Level 101, Carbon Dioxide Level 31H, Anion Gap 12, Blood Urea Nitrogen 20, Creatinine 0.7, Estimat Glomerular Filtration Rate , Glucose Level 118#H, Calcium Level 9.2, C-Reactive Protein, Quantitative 6.7H, Vitamin B12 Level 603 , Vitamin D 25-Hydroxy [Pending], 25-Hydroxy Vitamin D2 [Pending], 25-Hydroxy Vitamin D3 [Pending], Alpha-Tocopherol Level [Pending], Thyroid Stimulating Hormone (TSH) 1.520, Rheumatoid Factor Screen [Pending], Anti-Nuclear Antibody Screen [Pending], c-ANCA Titer [Pending], p-ANCA Titer [Pending] Current Medications Medications (Trade) Dose Ordered Sig/Piyush Route PRN Reason Start Time Stop Time Status Last Admin Dose Admin Acetaminophen (Tylenol) 650 mg Q4H PRN ORAL fever 06/19/17 22:15 07/19/17 22:14 Acetaminophen (Tylenol) 650 mg Q6H PRN ORAL Mild Pain (Pain Scale 1-3) 06/19/17 22:30 07/19/17 22:29 Al Hydroxide/Mg Hydroxide (Mylanta II) 30 ml Q6H PRN ORAL dyspepsia 06/19/17 22:15 07/19/17 22:14 Amlodipine Besylate (Norvasc) 5 mg DAILY ORAL 06/21/17 09:00 07/21/17 08:59 06/21/17 09:38 Clonidine HCl (Catapres) 0.1 mg Q2H PRN ORAL SBP > 170 06/20/17 15:00 07/20/17 14:59 Dextrose (Dextrose 50%) STAT PRN IV Hypoglycemia 06/19/17 22:15 07/19/17 22:14 Heparin Sodium (Porcine) (Heparin 5000 units/ml) 5,000 units EVERY 12 HOURS SUBQ 06/20/17 09:00 07/20/17 08:59 06/21/17 09:40 Insulin Aspart (NovoLOG) BEFORE MEALS AND HS SUBQ 06/20/17 06:30 07/20/17 06:29 06/21/17 17:26 Insulin Aspart (NovoLOG) 10 units NOVOTIAC SUBQ 06/22/17 06:30 07/22/17 06:29 Insulin Detemir (Levemir) 15 units Q12HR SUBQ 06/20/17 09:00 07/20/17 08:59 06/21/17 09:41 Lorazepam (Ativan 2mg/ml 1ml) 0.5 mg Q4H PRN IV For Anxiety 06/19/17 22:15 06/26/17 22:14 Ondansetron HCl (Zofran) 4 mg Q6H PRN IVP Nausea & Vomiting 06/19/17 22:15 07/19/17 22:14 Polyethylene Glycol (Miralax) 17 gm HSPRN PRN ORAL Constipation 06/19/17 22:15 07/19/17 22:14 Zolpidem Tartrate (Ambien) 5 mg HSPRN PRN ORAL Insomnia 06/19/17 22:15 07/19/17 22:14 SHAMEKA OVALLES Jun 21, 2017 18:49
[2017-06-21] MEDS: traMADol 50mg tab ORAL PRN (19:36)
[2017-06-21 20:00] VITALS: BP 154/88
[2017-06-22] VITALS: BP 133/74
[2017-06-22 03:53] VITALS: BP 129/60
[2017-06-22] MEDS: NovoLOG Insulin Flexpen SUBQ SCH ×7 (05:53→20:44)
[2017-06-22] MEDS: traMADol 50mg tab ORAL PRN (06:37)
[2017-06-22 07:19] VITALS: BP 104/57
[2017-06-22 07:20] LABS: BASOPHILS % (AUTO) 0.9 % (0.0-2.0); EOSINOPHILS % (AUTO) 3.2 % (0.0-3.0); LYMPHOCYTES % (AUTO) 30.4 % (20.0-45.0); MEAN CORPUSCULAR HEMOGLOBIN 28.4 PG (27.0-31.0); MEAN CORPUSCULAR HGB CONC 33.5 G/DL (32.0-36.0); MEAN CORPUSCULAR VOLUME 85 FL (80-99); MEAN PLATELET VOLUME 11.1 FL (6.5-10.1); MONOCYTES % (AUTO) 10.9 % (1.0-10.0); NEUTROPHILS % (AUTO) 54.7 % (45.0-75.0); PLATELET COUNT 195 K/UL (150-450); RED BLOOD COUNT 3.94 M/UL (4.20-5.40); RED CELL DISTRIBUTION WIDTH 11.5 % (11.6-14.8); WHITE BLOOD COUNT 8.9 K/UL (4.8-10.8)
[2017-06-22 08:02] LABS: ANION GAP 13 (5-15); CARBON DIOXIDE 29 mEQ/L (20-30); CHLORIDE 100 mEQ/L (98-107); CREATININE 0.6 mg/dL (0.5-0.9); HEMOLYSIS 2; POTASSIUM 3.2 mEQ/L (3.4-4.9); SODIUM 142 mEQ/L (135-145)
[2017-06-22] MEDS: Heparin 5000 units/ml inj SUBQ SCH ×2 (08:54→20:43)
[2017-06-22] MEDS: Levemir Flexpen SUBQ SCH ×2 (09:02→20:44)
[2017-06-22 12:00] VITALS: BP 127/60
--- NOTE | 2017-06-22 13:15 | General Progress Note ---
Assessment/Plan Problem List: (1) Proteinuria ICD Codes: R80.9 - Proteinuria, unspecified SNOMED: 32164450 Qualifiers: Qualified Codes: R80.9 - Proteinuria, unspecified (2) Pedal edema ICD Codes: R60.0 - Localized edema SNOMED: 906314552 (3) Polymyalgia rheumatica syndrome ICD Codes: M35.3 - Polymyalgia rheumatica SNOMED: 36422698, 97208574 (4) Dehydration ICD Codes: E86.0 - Dehydration SNOMED: 03919700, 09435913 (5) Failure to thrive in adult ICD Codes: R62.7 - Adult failure to thrive SNOMED: 805745867, 17549257 (6) Diabetic sensorimotor polyneuropathy ICD Codes: E11.42 - Type 2 diabetes mellitus with diabetic polyneuropathy SNOMED: 66806475, 864203320 (7) Hyperglycemia due to type 2 diabetes mellitus ICD Codes: E11.65 - Type 2 diabetes mellitus with hyperglycemia SNOMED: 451030036560413, 82109639 Qualifiers: Qualified Codes: E11.65 - Type 2 diabetes mellitus with hyperglycemia (8) Diabetes mellitus ICD Codes: E11.9 - Type 2 diabetes mellitus without complications SNOMED: 50599892 (9) Hypertension ICD Codes: I10 - Essential (primary) hypertension SNOMED: 16938720 Status: stable, progressing, tolerating diet Assessment/Plan ot pt diet bp bs control cbc bmp am snf prn Subjective Constitutional: Reports: weakness Allergies: Coded Allergies: CODEINE (Verified Allergy, Unknown, 06/19/17) LATEX (Verified Allergy, Unknown, 06/19/17) PENICILLINS (Verified Allergy, Unknown, 06/19/17) All Systems: reviewed and negative except above Subjective calm weak in bed Objective Last 24 Hour Vital Signs Date Time Temp Pulse Resp B/P Pulse Ox O2 Delivery O2 Flow Rate FiO2 06/22/17 12:00 97.2 82 19 127/60 98 Room Air 06/22/17 08:52 85 104/57 06/22/17 07:19 97.0 85 18 104/57 98 Room Air 06/22/17 03:53 97.7 87 18 129/60 98 Room Air 06/22/17 00:00 97.0 85 18 133/74 97 Room Air 06/21/17 20:35 97.2 06/21/17 20:00 97.2 94 18 154/88 97 Room Air 06/21/17 15:49 96.1 86 18 141/77 98 Room Air Intake and Output 06/21/17 06/22/17 19:00 07:00 Intake Total 840 ml 240 ml Balance 840 ml 240 ml Intake Oral 840 ml 240 ml # Voids 5 3 Laboratory Tests 06/22/17 05:10: White Blood Count 8.9, Red Blood Count 3.94L, Hemoglobin 11.2L, Hematocrit 33.4L , Mean Corpuscular Volume 85, Mean Corpuscular Hemoglobin 28.4, Mean Corpuscular Hemoglobin Concent 33.5, Red Cell Distribution Width 11.5L, Platelet Count 195, Mean Platelet Volume 11.1H, Neutrophils (%) (Auto) 54.7, Lymphocytes (%) (Auto) 30.4, Monocytes (%) (Auto) 10.9H, Eosinophils (%) (Auto) 3.2H, Basophils (%) (Auto) 0.9, Sodium Level 142, Potassium Level 3.2L, Chloride Level 100, Carbon Dioxide Level 29, Anion Gap 13, Blood Urea Nitrogen 10, Creatinine 0.6, Estimat Glomerular Filtration Rate , Glucose Level 107H, Calcium Level 9.0 Height (Feet): 5 Height (Inches): 4.00 Weight (Pounds): 130 General Appearance: lethargic EENT: normal ENT inspection Neck: normal alignment Cardiovascular: normal peripheral pulses, normal rate, regular rhythm Respiratory/Chest: chest wall non-tender, lungs clear, normal breath sounds Abdomen: normal bowel sounds, non tender, soft Extremities: normal inspection Edema: no edema noted Arm (L), no edema noted Arm (R), no edema noted Leg (L), no edema noted Leg (R), no edema noted Pedal (L), no edema noted Pedal (R), no edema noted Generalized Neurologic: responsive, motor weakness Skin: normal pigmentation, warm/dry CATARINA CHILDS Jun 22, 2017 13:15
[2017-06-22 16:00] VITALS: BP 135/73
[2017-06-22 16:21] LABS: ANTI-NUCLEAR ANTIBODY SCREEN Negative (Negative); RHEUMATOID FACTOR SCREEN 12.3 IU/mL (0.0-13.9)
--- NOTE | 2017-06-22 16:52 | Consultation ---
History of Present Illness General Chief Complaint: Pain Referring physician: Dr Pranav Fitzgerald Reason for Consultation: Hypokalemia, DANE Present Illness HPI The patient is a 80-year-old female with a PMHx significant HTN, DM, DJD, scoliosis, fibromyalgia with steroid treatment and history of right ankle swelling due to injury to the right lower extremity, who presented to the ED with progressive weakness for the last couple of weeks. . The patient also is complained of tingling and numbness in both upper and lower extremities and swelling of both feet. Lab showed severe hypokalemia. Elevated BUN and creatinine is resolved. Allergies: Coded Allergies: CODEINE (Verified Allergy, Unknown, 06/19/17) LATEX (Verified Allergy, Unknown, 06/19/17) PENICILLINS (Verified Allergy, Unknown, 06/19/17) Medication History Scheduled Alendronate Sodium* (Fosamax*), 70 MG ORAL ONCE A WEEK, (Reported) Amlodipine Besylate (Norvasc), 5 MG ORAL DAILY, (Reported) Cholecalciferol (Vitamin D3)* (Vitamin D*), 1,000 UNIT ORAL DAILY, (Reported) Docusate Sodium* (Docusate Sodium*), 100 MG ORAL TWICE A DAY, (Reported) Insulin Aspart (Novolog), 5 SQ AC+HS, (Reported) Insulin Detemir (Levemir), 15 SUBQ BEDTIME, (Reported) Insulin Regular, Human* (Novolin R*), 0 SUBQ AC, (Reported) No Known Medications* (NKM - No Known Medications*), 0 ., (Reported) Polyethylene Glycol 3350* (Miralax*), 17 GM ORAL HS, (Reported) Scheduled PRN Acetaminophen (Acetaminophen), 650 MG ORAL Q4HR PRN for Prn Headache/Temp > 101, (Reported) Clonidine Hcl* (Catapres*), 0.1 MG ORAL for For High Blood Pressure, (Reported) Tramadol Hcl* (Ultram*), 50 MG ORAL BID PRN for For Pain, (Reported) Zolpidem Tartrate* (Ambien*), 5 MG ORAL BEDTIME PRN for Insomnia, (Reported) Patient History History Provided By: Patient Healthcare decision maker Resuscitation status Chemical (Meds Only) Advanced Directive on File Past Medical/Surgical History Past Medical/Surgical History: (1) Diabetes mellitus (2) Hypertension (3) Paranoid ideation (4) Pedal edema (5) Polymyalgia rheumatica syndrome Social History Social History: (1) Non-smoker (2) No illicit drug use (3) No history of alcohol use Review of Systems All Other Systems: negative except mentioned in HPI Physical Exam General Appearance: alert HEENT: normocephalic, atraumatic Neck: normal alignment, supple, normal inspection Respiratory/Chest: lungs clear, normal breath sounds, no respiratory distress Cardiovascular/Chest: normal rate, regular rhythm Abdomen: non tender, soft, no organomegaly, no mass Extremities: non-tender, normal inspection, no calf tenderness Skin Exam: normal pigmentation, warm/dry Neurologic: alert, oriented x 3, responsive, normal mood/affect Last 24 Hour Vital Signs Date Time Temp Pulse Resp B/P Pulse Ox O2 Delivery O2 Flow Rate FiO2 06/22/17 12:00 97.2 82 19 127/60 98 Room Air 06/22/17 08:52 85 104/57 06/22/17 07:19 97.0 85 18 104/57 98 Room Air 06/22/17 03:53 97.7 87 18 129/60 98 Room Air 06/22/17 00:00 97.0 85 18 133/74 97 Room Air 06/21/17 20:35 97.2 06/21/17 20:00 97.2 94 18 154/88 97 Room Air Intake and Output 06/21/17 06/22/17 19:00 07:00 Intake Total 840 ml 240 ml Balance 840 ml 240 ml Intake Oral 840 ml 240 ml # Voids 5 3 Laboratory Tests Test 06/22/17 05:10 White Blood Count 8.9 K/UL (4.8-10.8) Red Blood Count 3.94 M/UL (4.20-5.40) L Hemoglobin 11.2 G/DL (12.0-16.0) L Hematocrit 33.4 % (37.0-47.0) L Mean Corpuscular Volume 85 FL (80-99) Mean Corpuscular Hemoglobin 28.4 PG (27.0-31.0) Mean Corpuscular Hemoglobin Concent 33.5 G/DL (32.0-36.0) Red Cell Distribution Width 11.5 % (11.6-14.8) L Platelet Count 195 K/UL (150-450) Mean Platelet Volume 11.1 FL (6.5-10.1) H Neutrophils (%) (Auto) 54.7 % (45.0-75.0) Lymphocytes (%) (Auto) 30.4 % (20.0-45.0) Monocytes (%) (Auto) 10.9 % (1.0-10.0) H Eosinophils (%) (Auto) 3.2 % (0.0-3.0) H Basophils (%) (Auto) 0.9 % (0.0-2.0) Sodium Level 142 mEQ/L (135-145) Potassium Level 3.2 mEQ/L (3.4-4.9) L Chloride Level 100 mEQ/L (98-107) Carbon Dioxide Level 29 mEQ/L (20-30) Anion Gap 13 (5-15) Blood Urea Nitrogen 10 mg/dL (7-23) Creatinine 0.6 mg/dL (0.5-0.9) Estimat Glomerular Filtration Rate mL/min (>60) Glucose Level 107 mg/dL (74-106) H Calcium Level 9.0 mg/dL (8.6-10.2) Height (Feet): 5 Height (Inches): 4.00 Weight (Pounds): 130 Medications Current Medications Medications (Trade) Dose Ordered Sig/Piyush Route PRN Reason Start Time Stop Time Status Last Admin Dose Admin Acetaminophen (Tylenol) 650 mg Q4H PRN ORAL fever 06/19/17 22:15 07/19/17 22:14 Acetaminophen (Tylenol) 650 mg Q6H PRN ORAL Mild Pain (Pain Scale 1-3) 06/19/17 22:30 07/19/17 22:29 Al Hydroxide/Mg Hydroxide (Mylanta II) 30 ml Q6H PRN ORAL dyspepsia 06/19/17 22:15 07/19/17 22:14 Amlodipine Besylate (Norvasc) 5 mg DAILY ORAL 06/21/17 09:00 07/21/17 08:59 06/22/17 08:52 Clonidine HCl (Catapres) 0.1 mg Q2H PRN ORAL SBP > 170 06/20/17 15:00 07/20/17 14:59 Dextrose (Dextrose 50%) STAT PRN IV Hypoglycemia 06/19/17 22:15 07/19/17 22:14 Heparin Sodium (Porcine) (Heparin 5000 units/ml) 5,000 units EVERY 12 HOURS SUBQ 06/20/17 09:00 07/20/17 08:59 06/22/17 08:54 Insulin Aspart (NovoLOG) BEFORE MEALS AND HS SUBQ 06/20/17 06:30 07/20/17 06:29 06/22/17 11:30 Insulin Aspart (NovoLOG) 10 units NOVOTIAC SUBQ 06/22/17 06:30 07/22/17 06:29 06/22/17 11:50 Insulin Detemir (Levemir) 15 units Q12HR SUBQ 06/20/17 09:00 07/20/17 08:59 06/22/17 09:02 Lorazepam (Ativan 2mg/ml 1ml) 0.5 mg Q4H PRN IV For Anxiety 06/19/17 22:15 06/26/17 22:14 Ondansetron HCl (Zofran) 4 mg Q6H PRN IVP Nausea & Vomiting 06/19/17 22:15 07/19/17 22:14 Polyethylene Glycol (Miralax) 17 gm HSPRN PRN ORAL Constipation 06/19/17 22:15 07/19/17 22:14 Tramadol HCl (Ultram) 50 mg BID PRN ORAL For Pain 06/21/17 19:00 06/28/17 18:59 06/22/17 06:37 Zolpidem Tartrate (Ambien) 5 mg HSPRN PRN ORAL Insomnia 06/19/17 22:15 07/19/17 22:14 Assessment/Plan Problem List: (1) Failure to thrive in adult ICD Codes: R62.7 - Adult failure to thrive SNOMED: 668113413, 44206715 (2) Diabetes mellitus ICD Codes: E11.9 - Type 2 diabetes mellitus without complications SNOMED: 49797866 (3) Hypertension ICD Codes: I10 - Essential (primary) hypertension SNOMED: 17031175 (4) Dehydration ICD Codes: E86.0 - Dehydration SNOMED: 74621702, 95225901 Assessment/Plan Renally dose meds Monitor lites, replace PRN Avoid nephrotoxins Cardio following Neuro following Continue PT/OT AM labs Elizabet Harris N.P. Jun 22, 2017 16:52
--- NOTE | 2017-06-22 17:52 | Cardiac Electrophysiology PN ---
Assessment/Plan Assessment/Plan 1. Hypertension. Continue Norvasc 5 mg daily. Echocardiogram showed EF 70% to 75%. 2. Diabetes. 3. Generalized weakness. 4. Sedimentation rate of more than 100. 5. History of paranoid ideation. 6. Polymyalgia rheumatica. 7. Diabetic polyneuropathy. KEVIN RN Subjective Subjective Comfortable in NAD on NMB. No chest pain or SOB. Awaiting placement. Objective Last 24 Hour Vital Signs Date Time Temp Pulse Resp B/P Pulse Ox O2 Delivery O2 Flow Rate FiO2 06/22/17 16:00 97.2 87 18 135/73 99 Room Air 06/22/17 12:00 97.2 82 19 127/60 98 Room Air 06/22/17 08:52 85 104/57 06/22/17 07:19 97.0 85 18 104/57 98 Room Air 06/22/17 03:53 97.7 87 18 129/60 98 Room Air 06/22/17 00:00 97.0 85 18 133/74 97 Room Air 06/21/17 20:35 97.2 06/21/17 20:00 97.2 94 18 154/88 97 Room Air Intake and Output 06/21/17 06/22/17 19:00 07:00 Intake Total 840 ml 240 ml Balance 840 ml 240 ml Intake Oral 840 ml 240 ml # Voids 5 3 Laboratory Tests Test 06/22/17 05:10 White Blood Count 8.9 K/UL (4.8-10.8) Red Blood Count 3.94 M/UL (4.20-5.40) L Hemoglobin 11.2 G/DL (12.0-16.0) L Hematocrit 33.4 % (37.0-47.0) L Mean Corpuscular Volume 85 FL (80-99) Mean Corpuscular Hemoglobin 28.4 PG (27.0-31.0) Mean Corpuscular Hemoglobin Concent 33.5 G/DL (32.0-36.0) Red Cell Distribution Width 11.5 % (11.6-14.8) L Platelet Count 195 K/UL (150-450) Mean Platelet Volume 11.1 FL (6.5-10.1) H Neutrophils (%) (Auto) 54.7 % (45.0-75.0) Lymphocytes (%) (Auto) 30.4 % (20.0-45.0) Monocytes (%) (Auto) 10.9 % (1.0-10.0) H Eosinophils (%) (Auto) 3.2 % (0.0-3.0) H Basophils (%) (Auto) 0.9 % (0.0-2.0) Sodium Level 142 mEQ/L (135-145) Potassium Level 3.2 mEQ/L (3.4-4.9) L Chloride Level 100 mEQ/L (98-107) Carbon Dioxide Level 29 mEQ/L (20-30) Anion Gap 13 (5-15) Blood Urea Nitrogen 10 mg/dL (7-23) Creatinine 0.6 mg/dL (0.5-0.9) Estimat Glomerular Filtration Rate mL/min (>60) Glucose Level 107 mg/dL (74-106) H Calcium Level 9.0 mg/dL (8.6-10.2) Objective HEAD AND NECK: Shows no JVD. LUNGS: Decreased breath sounds. CARDIOVASCULAR: Regular S1 and S2 with no gallop. ABDOMEN: Soft. EXTREMITIES: There is 1+ pitting edema. KARIE FAN Jun 22, 2017 17:52
--- NOTE | 2017-06-22 19:25 | Diagnostic Imaging Report ---
APPROVED REPORT CPT Code: 69921 Present Symptoms Lower Extremity Pain: Bilateral BILATERAL: Imaging reveals a patent deep venous system bilaterally. There is no evidence of thrombus within the femoral, popliteal or tibial segments. The greater saphenous veins are also within normal limits. Doppler indicates normal spontaneous flow within these segments.
[2017-06-22 20:00] VITALS: BP 126/58
--- NOTE | 2017-06-22 23:06 | Pulmonology Progress Note ---
Assessment/Plan Problems: (1) Pedal edema (2) Failure to thrive in adult (3) Diabetic sensorimotor polyneuropathy (4) Polymyalgia rheumatica syndrome (5) Diabetes mellitus (6) Hypertension Assessment/Plan symptomatic treatment pain management f/e ESR bp management sliding scale dvt prophylaxis all notes and meds reviewed Subjective ROS Limited/Unobtainable: No Constitutional: Reports: no symptoms HEENT: Repors: no symptoms Allergies: Coded Allergies: CODEINE (Verified Allergy, Unknown, 06/19/17) LATEX (Verified Allergy, Unknown, 06/19/17) PENICILLINS (Verified Allergy, Unknown, 06/19/17) Objective Last 24 Hour Vital Signs Date Time Temp Pulse Resp B/P Pulse Ox O2 Delivery O2 Flow Rate FiO2 06/22/17 20:00 98.1 84 18 126/58 98 Room Air 06/22/17 16:00 97.2 87 18 135/73 99 Room Air 06/22/17 12:00 97.2 82 19 127/60 98 Room Air 06/22/17 08:52 85 104/57 06/22/17 07:19 97.0 85 18 104/57 98 Room Air 06/22/17 03:53 97.7 87 18 129/60 98 Room Air 06/22/17 00:00 97.0 85 18 133/74 97 Room Air Intake and Output 06/21/17 06/22/17 19:00 07:00 Intake Total 840 ml 240 ml Balance 840 ml 240 ml Intake Oral 840 ml 240 ml # Voids 5 3 Objective General Appearance: wn/wd/wh HEENT: normocephalic Respiratory/Chest: chest wall non-tender, lungs clear Breasts: no masses Cardiovascular: normal peripheral pulses Abdomen: normal bowel sounds, no organomegaly Genitourinary: normal external genitalia Extremities: no cyanosis Neurologic/Psychiatric: painter mirror II-XII grossly normal Laboratory Tests 06/22/17 05:10: White Blood Count 8.9, Red Blood Count 3.94L, Hemoglobin 11.2L, Hematocrit 33.4L , Mean Corpuscular Volume 85, Mean Corpuscular Hemoglobin 28.4, Mean Corpuscular Hemoglobin Concent 33.5, Red Cell Distribution Width 11.5L, Platelet Count 195, Mean Platelet Volume 11.1H, Neutrophils (%) (Auto) 54.7, Lymphocytes (%) (Auto) 30.4, Monocytes (%) (Auto) 10.9H, Eosinophils (%) (Auto) 3.2H, Basophils (%) (Auto) 0.9, Sodium Level 142, Potassium Level 3.2L, Chloride Level 100, Carbon Dioxide Level 29, Anion Gap 13, Blood Urea Nitrogen 10, Creatinine 0.6, Estimat Glomerular Filtration Rate , Glucose Level 107H, Calcium Level 9.0 06/22/17 17:45: Alpha-Tocopherol Level [Pending] Current Medications Medications (Trade) Dose Ordered Sig/Piyush Route PRN Reason Start Time Stop Time Status Last Admin Dose Admin Acetaminophen (Tylenol) 650 mg Q4H PRN ORAL fever 06/19/17 22:15 07/19/17 22:14 Acetaminophen (Tylenol) 650 mg Q6H PRN ORAL Mild Pain (Pain Scale 1-3) 06/19/17 22:30 07/19/17 22:29 Al Hydroxide/Mg Hydroxide (Mylanta II) 30 ml Q6H PRN ORAL dyspepsia 06/19/17 22:15 07/19/17 22:14 Amlodipine Besylate (Norvasc) 5 mg DAILY ORAL 06/21/17 09:00 07/21/17 08:59 06/22/17 08:52 Clonidine HCl (Catapres) 0.1 mg Q2H PRN ORAL SBP > 170 06/20/17 15:00 07/20/17 14:59 Dextrose (Dextrose 50%) STAT PRN IV Hypoglycemia 06/19/17 22:15 07/19/17 22:14 Heparin Sodium (Porcine) (Heparin 5000 units/ml) 5,000 units EVERY 12 HOURS SUBQ 06/20/17 09:00 07/20/17 08:59 06/22/17 20:43 Insulin Aspart (NovoLOG) BEFORE MEALS AND HS SUBQ 06/20/17 06:30 07/20/17 06:29 06/22/17 20:44 Insulin Aspart (NovoLOG) 10 units NOVOTIAC SUBQ 06/22/17 06:30 07/22/17 06:29 06/22/17 16:50 Insulin Detemir (Levemir) 15 units Q12HR SUBQ 06/20/17 09:00 07/20/17 08:59 06/22/17 20:44 Lorazepam (Ativan 2mg/ml 1ml) 0.5 mg Q4H PRN IV For Anxiety 06/19/17 22:15 06/26/17 22:14 Ondansetron HCl (Zofran) 4 mg Q6H PRN IVP Nausea & Vomiting 06/19/17 22:15 07/19/17 22:14 Polyethylene Glycol (Miralax) 17 gm HSPRN PRN ORAL Constipation 06/19/17 22:15 07/19/17 22:14 Tramadol HCl (Ultram) 50 mg BID PRN ORAL For Pain 06/21/17 19:00 06/28/17 18:59 06/22/17 06:37 Zolpidem Tartrate (Ambien) 5 mg HSPRN PRN ORAL Insomnia 06/19/17 22:15 07/19/17 22:14 SHAMEKA OVALLES Jun 22, 2017 23:06
[2017-06-23] MEDS: traMADol 50mg tab ORAL PRN ×2 (00:14→17:14)
--- NOTE | 2017-06-23 00:15 | Geriatric Medicine Prog Note ---
DATE: 06/22/2017 SUBJECTIVE: The patient is more comfortable today. OBJECTIVE: Blood pressure 135/73, pulse 70, respiratory rate 20, temperature 97.3 degrees. RESPIRATORY: Clear. CVS: Regular. LABORATORY DATA: Glucose 139-172-182. ASSESSMENT: Diabetes mellitus, improved control. PLAN: Levemir insulin 15 units q.12 h. and NovoLog 10 units t.i.d. a.c. Grant Camacho M.D. DR: SANDEE JOB#: [id number] CC:
[2017-06-23 00:20] VITALS: BP 130/58
[2017-06-23 04:14] VITALS: BP 124/65
[2017-06-23] MEDS: NovoLOG Insulin Flexpen SUBQ SCH ×7 (06:04→20:54)
[2017-06-23 07:07] LABS: BASOPHILS % (AUTO) 0.9 % (0.0-2.0); EOSINOPHILS % (AUTO) 2.6 % (0.0-3.0); LYMPHOCYTES % (AUTO) 34.9 % (20.0-45.0); MEAN CORPUSCULAR HEMOGLOBIN 27.8 PG (27.0-31.0); MEAN CORPUSCULAR HGB CONC 32.6 G/DL (32.0-36.0); MEAN CORPUSCULAR VOLUME 85 FL (80-99); MEAN PLATELET VOLUME 11.6 FL (6.5-10.1); MONOCYTES % (AUTO) 11.2 % (1.0-10.0); NEUTROPHILS % (AUTO) 50.5 % (45.0-75.0); PLATELET COUNT 193 K/UL (150-450); RED CELL DISTRIBUTION WIDTH 11.6 % (11.6-14.8); WHITE BLOOD COUNT 8.9 K/UL (4.8-10.8)
[2017-06-23 07:19] LABS: ANION GAP 8 (5-15); CALCIUM 8.8 mg/dL (8.6-10.2); CARBON DIOXIDE 31 mEQ/L (20-30); CHLORIDE 98 mEQ/L (98-107); CREATININE 0.7 mg/dL (0.5-0.9); HEMOLYSIS 1; POTASSIUM 4.3 mEQ/L (3.4-4.9); SODIUM 137 mEQ/L (135-145)
[2017-06-23 08:00] VITALS: BP 157/81
[2017-06-23] MEDS: Heparin 5000 units/ml inj SUBQ SCH ×2 (08:34→20:52)
[2017-06-23] MEDS: Levemir Flexpen SUBQ SCH (08:42)
[2017-06-23] MEDS ORDERED: NS 275ml ONE (10:38)
[2017-06-23] MEDS ORDERED: Tubing IV Secondary IV ONE (10:38)
[2017-06-23 12:00] VITALS: BP 141/70
--- NOTE | 2017-06-23 15:34 | General Progress Note ---
Assessment/Plan Problem List: (1) Proteinuria ICD Codes: R80.9 - Proteinuria, unspecified SNOMED: 46599569 Qualifiers: Qualified Codes: R80.9 - Proteinuria, unspecified (2) Pedal edema ICD Codes: R60.0 - Localized edema SNOMED: 928397037 (3) Polymyalgia rheumatica syndrome ICD Codes: M35.3 - Polymyalgia rheumatica SNOMED: 31238395, 56410291 (4) Dehydration ICD Codes: E86.0 - Dehydration SNOMED: 85745331, 95333167 (5) Failure to thrive in adult ICD Codes: R62.7 - Adult failure to thrive SNOMED: 257416294, 28568450 (6) Diabetic sensorimotor polyneuropathy ICD Codes: E11.42 - Type 2 diabetes mellitus with diabetic polyneuropathy SNOMED: 32377935, 177705956 (7) Hyperglycemia due to type 2 diabetes mellitus ICD Codes: E11.65 - Type 2 diabetes mellitus with hyperglycemia SNOMED: 509993369314237, 33653304 Qualifiers: Qualified Codes: E11.65 - Type 2 diabetes mellitus with hyperglycemia (8) Diabetes mellitus ICD Codes: E11.9 - Type 2 diabetes mellitus without complications SNOMED: 44056841 (9) Hypertension ICD Codes: I10 - Essential (primary) hypertension SNOMED: 30359922 Status: stable, progressing, tolerating diet Assessment/Plan ot pt diet bp bs control cbc bmp am ltach snf prn Subjective Constitutional: Reports: weakness Allergies: Coded Allergies: CODEINE (Verified Allergy, Unknown, 06/19/17) LATEX (Verified Allergy, Unknown, 06/19/17) PENICILLINS (Verified Allergy, Unknown, 06/19/17) All Systems: reviewed and negative except above Subjective calm weak in bed Objective Last 24 Hour Vital Signs Date Time Temp Pulse Resp B/P Pulse Ox O2 Delivery O2 Flow Rate FiO2 06/23/17 12:00 97.5 86 20 141/70 97 Room Air 06/23/17 08:38 153/87 06/23/17 08:00 97.5 99 19 157/81 97 Room Air 06/23/17 04:14 98.1 84 20 124/65 97 Room Air 06/23/17 01:22 98.2 06/23/17 00:20 98.2 87 19 130/58 97 Room Air 06/22/17 20:00 98.1 84 18 126/58 98 Room Air 06/22/17 16:00 97.2 87 18 135/73 99 Room Air Intake and Output 06/22/17 06/23/17 19:00 07:00 Intake Total 300 ml 890 ml Balance 300 ml 890 ml Intake Oral 300 ml 890 ml # Voids 3 6 Laboratory Tests 06/22/17 17:45: Alpha-Tocopherol Level [Pending] 06/23/17 05:10: White Blood Count 8.9, Red Blood Count 3.70L, Hemoglobin 10.3L, Hematocrit 31.6L , Mean Corpuscular Volume 85, Mean Corpuscular Hemoglobin 27.8, Mean Corpuscular Hemoglobin Concent 32.6, Red Cell Distribution Width 11.6, Platelet Count 193, Mean Platelet Volume 11.6H, Neutrophils (%) (Auto) 50.5, Lymphocytes (%) (Auto) 34.9, Monocytes (%) (Auto) 11.2H, Eosinophils (%) (Auto) 2.6, Basophils (%) (Auto) 0.9, Sodium Level 137, Potassium Level 4.3, Chloride Level 98, Carbon Dioxide Level 31H, Anion Gap 8, Blood Urea Nitrogen 14, Creatinine 0.7, Estimat Glomerular Filtration Rate , Glucose Level 163H, Calcium Level 8.8 Height (Feet): 5 Height (Inches): 4.00 Weight (Pounds): 130 General Appearance: lethargic EENT: normal ENT inspection Neck: normal alignment Cardiovascular: normal peripheral pulses, normal rate, regular rhythm Respiratory/Chest: chest wall non-tender, lungs clear, normal breath sounds Abdomen: normal bowel sounds, non tender, soft Extremities: normal inspection Edema: no edema noted Arm (L), no edema noted Arm (R), no edema noted Leg (L), no edema noted Leg (R), no edema noted Pedal (L), no edema noted Pedal (R), no edema noted Generalized Neurologic: responsive, motor weakness Skin: normal pigmentation, warm/dry CATARINA CHILDS Jun 23, 2017 15:34
[2017-06-23 16:01] VITALS: BP 122/69
--- NOTE | 2017-06-23 16:08 | Pulmonology Progress Note ---
Assessment/Plan Problems: (1) Failure to thrive in adult (2) Pedal edema (3) Diabetic sensorimotor polyneuropathy (4) Polymyalgia rheumatica syndrome (5) Diabetes mellitus (6) Hypertension Assessment/Plan symptomatic treatment pain management f/e ESR bp management sliding scale dvt prophylaxis dc planning Subjective ROS Limited/Unobtainable: No Constitutional: Reports: no symptoms HEENT: Repors: no symptoms Respiratory: Reports: no symptoms Cardiovascular: Reports: no symptoms Allergies: Coded Allergies: CODEINE (Verified Allergy, Unknown, 06/19/17) LATEX (Verified Allergy, Unknown, 06/19/17) PENICILLINS (Verified Allergy, Unknown, 06/19/17) Objective Last 24 Hour Vital Signs Date Time Temp Pulse Resp B/P Pulse Ox O2 Delivery O2 Flow Rate FiO2 06/23/17 16:01 98.1 81 18 122/69 99 Room Air 06/23/17 12:00 97.5 86 20 141/70 97 Room Air 06/23/17 08:38 153/87 06/23/17 08:00 97.5 99 19 157/81 97 Room Air 06/23/17 04:14 98.1 84 20 124/65 97 Room Air 06/23/17 01:22 98.2 06/23/17 00:20 98.2 87 19 130/58 97 Room Air 06/22/17 20:00 98.1 84 18 126/58 98 Room Air Intake and Output 06/22/17 06/23/17 19:00 07:00 Intake Total 300 ml 890 ml Balance 300 ml 890 ml Intake Oral 300 ml 890 ml # Voids 3 6 Objective General Appearance: wn/wd/wh HEENT: normocephalic Respiratory/Chest: chest wall non-tender, lungs clear Breasts: no masses Cardiovascular: normal peripheral pulses Abdomen: normal bowel sounds, no organomegaly Genitourinary: normal external genitalia Extremities: no cyanosis 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 Laboratory Tests 06/22/17 17:45: Alpha-Tocopherol Level [Pending] 06/23/17 05:10: White Blood Count 8.9, Red Blood Count 3.70L, Hemoglobin 10.3L, Hematocrit 31.6L , Mean Corpuscular Volume 85, Mean Corpuscular Hemoglobin 27.8, Mean Corpuscular Hemoglobin Concent 32.6, Red Cell Distribution Width 11.6, Platelet Count 193, Mean Platelet Volume 11.6H, Neutrophils (%) (Auto) 50.5, Lymphocytes (%) (Auto) 34.9, Monocytes (%) (Auto) 11.2H, Eosinophils (%) (Auto) 2.6, Basophils (%) (Auto) 0.9, Sodium Level 137, Potassium Level 4.3, Chloride Level 98, Carbon Dioxide Level 31H, Anion Gap 8, Blood Urea Nitrogen 14, Creatinine 0.7, Estimat Glomerular Filtration Rate , Glucose Level 163H, Calcium Level 8.8 Current Medications Medications (Trade) Dose Ordered Sig/Piyush Route PRN Reason Start Time Stop Time Status Last Admin Dose Admin Acetaminophen (Tylenol) 650 mg Q4H PRN ORAL fever 06/19/17 22:15 07/19/17 22:14 Acetaminophen (Tylenol) 650 mg Q6H PRN ORAL Mild Pain (Pain Scale 1-3) 06/19/17 22:30 07/19/17 22:29 Al Hydroxide/Mg Hydroxide (Mylanta II) 30 ml Q6H PRN ORAL dyspepsia 06/19/17 22:15 07/19/17 22:14 Amlodipine Besylate (Norvasc) 5 mg DAILY ORAL 06/21/17 09:00 07/21/17 08:59 06/23/17 08:38 Clonidine HCl (Catapres) 0.1 mg Q2H PRN ORAL SBP > 170 06/20/17 15:00 07/20/17 14:59 Dextrose (Dextrose 50%) STAT PRN IV Hypoglycemia 06/19/17 22:15 07/19/17 22:14 06/23/17 08:12 Docusate Sodium (Colace) 100 mg TWICE A DAY ORAL 06/23/17 16:00 07/23/17 15:59 Heparin Sodium (Porcine) (Heparin 5000 units/ml) 5,000 units EVERY 12 HOURS SUBQ 06/20/17 09:00 07/20/17 08:59 06/23/17 08:34 Insulin Aspart (NovoLOG) BEFORE MEALS AND HS SUBQ 06/20/17 06:30 07/20/17 06:29 06/23/17 12:52 Insulin Aspart (NovoLOG) 5 units NOVOTIAC SUBQ 06/23/17 13:00 07/23/17 12:59 8/3/17 12:53 Insulin Detemir (Levemir) 15 units BEDTIME SUBQ 06/23/17 21:00 07/23/17 20:59 Lorazepam (Ativan 2mg/ml 1ml) 0.5 mg Q4H PRN IV For Anxiety 06/19/17 22:15 06/26/17 22:14 Ondansetron HCl (Zofran) 4 mg Q6H PRN IVP Nausea & Vomiting 06/19/17 22:15 07/19/17 22:14 Polyethylene Glycol (Miralax) 17 gm HSPRN PRN ORAL Constipation 06/19/17 22:15 07/19/17 22:14 Tramadol HCl (Ultram) 50 mg BID PRN ORAL For Pain 06/21/17 19:00 06/28/17 18:59 06/23/17 00:14 Zolpidem Tartrate (Ambien) 5 mg HSPRN PRN ORAL Insomnia 06/19/17 22:15 07/19/17 22:14 SHAMEKA OVALLES Jun 23, 2017 16:08
[2017-06-23] MEDS: Docusate 100mg cap ORAL SCH ×2 (16:28→19:03)
--- NOTE | 2017-06-23 16:40 | Cardiac Electrophysiology PN ---
Assessment/Plan Assessment/Plan 1. Hypertension. Continue Norvasc 5 mg daily. EF 70% to 75%. 2. Diabetes. 3. Generalized weakness. 4. Sedimentation rate of more than 100. 5. History of paranoid ideation. 6. Polymyalgia rheumatica. 7. Diabetic polyneuropathy. KEVIN RN Subjective Subjective Comfortable in NAD on NMB. Refused SNIF placement.RN at bedside. Objective Last 24 Hour Vital Signs Date Time Temp Pulse Resp B/P Pulse Ox O2 Delivery O2 Flow Rate FiO2 06/23/17 16:01 98.1 81 18 122/69 99 Room Air 06/23/17 12:00 97.5 86 20 141/70 97 Room Air 06/23/17 08:38 153/87 06/23/17 08:00 97.5 99 19 157/81 97 Room Air 06/23/17 04:14 98.1 84 20 124/65 97 Room Air 06/23/17 01:22 98.2 06/23/17 00:20 98.2 87 19 130/58 97 Room Air 06/22/17 20:00 98.1 84 18 126/58 98 Room Air Intake and Output 06/22/17 06/23/17 19:00 07:00 Intake Total 300 ml 890 ml Balance 300 ml 890 ml Intake Oral 300 ml 890 ml # Voids 3 6 Laboratory Tests Test 06/22/17 17:45 06/23/17 05:10 Alpha-Tocopherol Level Pending White Blood Count 8.9 K/UL (4.8-10.8) Red Blood Count 3.70 M/UL (4.20-5.40) L Hemoglobin 10.3 G/DL (12.0-16.0) L Hematocrit 31.6 % (37.0-47.0) L Mean Corpuscular Volume 85 FL (80-99) Mean Corpuscular Hemoglobin 27.8 PG (27.0-31.0) Mean Corpuscular Hemoglobin Concent 32.6 G/DL (32.0-36.0) Red Cell Distribution Width 11.6 % (11.6-14.8) Platelet Count 193 K/UL (150-450) Mean Platelet Volume 11.6 FL (6.5-10.1) H Neutrophils (%) (Auto) 50.5 % (45.0-75.0) Lymphocytes (%) (Auto) 34.9 % (20.0-45.0) Monocytes (%) (Auto) 11.2 % (1.0-10.0) H Eosinophils (%) (Auto) 2.6 % (0.0-3.0) Basophils (%) (Auto) 0.9 % (0.0-2.0) Sodium Level 137 mEQ/L (135-145) Potassium Level 4.3 mEQ/L (3.4-4.9) Chloride Level 98 mEQ/L (98-107) Carbon Dioxide Level 31 mEQ/L (20-30) H Anion Gap 8 (5-15) Blood Urea Nitrogen 14 mg/dL (7-23) Creatinine 0.7 mg/dL (0.5-0.9) Estimat Glomerular Filtration Rate mL/min (>60) Glucose Level 163 mg/dL (74-106) H Calcium Level 8.8 mg/dL (8.6-10.2) Objective HEAD AND NECK: Shows no JVD. LUNGS: Decreased breath sounds. CARDIOVASCULAR: Regular S1 and S2 with no gallop. ABDOMEN: Soft. EXTREMITIES: There is 1+ pitting edema. KARIE FAN Jun 23, 2017 16:40
[2017-06-23 20:00] VITALS: BP 153/78
[2017-06-23] MEDS ORDERED: Levemir Flexpen SUBQ SCH (21:00)
--- NOTE | 2017-06-23 23:52 | Nephrology Progress Note ---
Assessment/Plan Problem List: (1) DANE (acute kidney injury) Assessment: resolved. (2) Diabetes mellitus (3) Hypertension Plan renal function stable. d/c planning. monitor labs. Subjective Subjective no acute events. Objective Objective Last 24 Hour Vital Signs Date Time Temp Pulse Resp B/P Pulse Ox O2 Delivery O2 Flow Rate FiO2 06/23/17 20:00 97.9 91 20 153/78 99 Room Air 06/23/17 16:01 98.1 81 18 122/69 99 Room Air 06/23/17 12:00 97.5 86 20 141/70 97 Room Air 06/23/17 08:38 153/87 06/23/17 08:00 97.5 99 19 157/81 97 Room Air 06/23/17 04:14 98.1 84 20 124/65 97 Room Air 06/23/17 01:22 98.2 06/23/17 00:20 98.2 87 19 130/58 97 Room Air Intake and Output 06/22/17 06/23/17 19:00 07:00 Intake Total 300 ml 890 ml Balance 300 ml 890 ml Intake Oral 300 ml 890 ml # Voids 3 6 Laboratory Tests 06/23/17 05:10: White Blood Count 8.9, Red Blood Count 3.70L, Hemoglobin 10.3L, Hematocrit 31.6L , Mean Corpuscular Volume 85, Mean Corpuscular Hemoglobin 27.8, Mean Corpuscular Hemoglobin Concent 32.6, Red Cell Distribution Width 11.6, Platelet Count 193, Mean Platelet Volume 11.6H, Neutrophils (%) (Auto) 50.5, Lymphocytes (%) (Auto) 34.9, Monocytes (%) (Auto) 11.2H, Eosinophils (%) (Auto) 2.6, Basophils (%) (Auto) 0.9, Sodium Level 137, Potassium Level 4.3, Chloride Level 98, Carbon Dioxide Level 31H, Anion Gap 8, Blood Urea Nitrogen 14, Creatinine 0.7, Estimat Glomerular Filtration Rate , Glucose Level 163H, Calcium Level 8.8 Height (Feet): 5 Height (Inches): 4.00 Weight (Pounds): 130 General Appearance: no apparent distress Cardiovascular: normal rate, regular rhythm Respiratory/Chest: lungs clear Abdomen: non tender, soft NANCY VALE Jun 23, 2017 23:52
[2017-06-24] VITALS: BP 139/79
[2017-06-24 04:00] VITALS: BP 124/73
[2017-06-24] MEDS: NovoLOG Insulin Flexpen SUBQ SCH ×6 (05:45→16:56)
[2017-06-24 06:23] LABS: BASOPHILS % (AUTO) 0.9 % (0.0-2.0); EOSINOPHILS % (AUTO) 3.8 % (0.0-3.0); LYMPHOCYTES % (AUTO) 38.3 % (20.0-45.0); MEAN CORPUSCULAR HGB CONC 32.6 G/DL (32.0-36.0); MEAN CORPUSCULAR VOLUME 86 FL (80-99); MEAN PLATELET VOLUME 11.5 FL (6.5-10.1); MONOCYTES % (AUTO) 9.6 % (1.0-10.0); NEUTROPHILS % (AUTO) 47.5 % (45.0-75.0); PLATELET COUNT 204 K/UL (150-450); RED BLOOD COUNT 3.89 M/UL (4.20-5.40); RED CELL DISTRIBUTION WIDTH 12.3 % (11.6-14.8); WHITE BLOOD COUNT 9.1 K/UL (4.8-10.8)
[2017-06-24 06:55] LABS: ANION GAP 9 (5-15); CALCIUM 9.3 mg/dL (8.6-10.2); CARBON DIOXIDE 32 mEQ/L (20-30); CHLORIDE 100 mEQ/L (98-107); CREATININE 0.7 mg/dL (0.5-0.9); HEMOLYSIS 0; POTASSIUM 4.2 mEQ/L (3.4-4.9); SODIUM 141 mEQ/L (135-145)
--- NOTE | 2017-06-24 07:47 | Pulmonology Progress Note ---
Assessment/Plan Assessment/Plan ASSESSMENT diabetic sensorimotor polyneuropathy polymyalgia rheumatica syndrome r/o collagen vascular disease HTN DM dehydration osteoporosis vitamin D deficiency possible protein calorie malnutrition paranoid ideation PLAN OF CARE MS floor neuro follows DONNY panel, RF negative elevated ESR continue Neurontin and titrate for comfort Venous Duplex BLE negative PT/OT pain management DVT prophayxlis Bowel regimen, give Dulcolax x 1 now CXR no acute cardiopulmonary disease O2 HHN prn BP management with CCB, cardio follows EF 70-75% and RVSP of 21 BS management with Levemir and premeal NovoLog, endo follows dietary eval noted R shoulder X ray c/w osteoporosis vitamin D level low start vitamin D replacement add Fosamax q week check prealbumin, calorie count dietary recommendations - add Glucerna as recommended by dietary case discussed and evaluated by supervising physician Subjective Allergies: Coded Allergies: CODEINE (Verified Allergy, Unknown, 06/19/17) LATEX (Verified Allergy, Unknown, 06/19/17) PENICILLINS (Verified Allergy, Unknown, 06/19/17) Subjective tolerates diet c/o constipation c/o pain BLE, chronic, intermittent Objective Last 24 Hour Vital Signs Date Time Temp Pulse Resp B/P Pulse Ox O2 Delivery O2 Flow Rate FiO2 06/24/17 04:00 98.2 85 18 124/73 99 Room Air 06/24/17 00:00 97.7 86 21 139/79 99 Room Air 06/23/17 20:00 97.9 91 20 153/78 99 Room Air 06/23/17 16:01 98.1 81 18 122/69 99 Room Air 06/23/17 12:00 97.5 86 20 141/70 97 Room Air 06/23/17 08:38 153/87 06/23/17 08:00 97.5 99 19 157/81 97 Room Air Intake and Output 06/23/17 06/24/17 19:00 07:00 Intake Total 1200 ml 240 ml Balance 1200 ml 240 ml Intake Oral 1200 ml 240 ml # Voids 5 4 General Appearance: no acute distress, other - elderly AA female , awake, alert, responsive HEENT: anicteric, mucous membranes moist Respiratory/Chest: no respiratory distress, no accessory muscle use, decreased breath sounds Cardiovascular: normal peripheral pulses, normal rate, edema - +1 BLE pitting Abdomen: soft, non tender, non distended Genitourinary: normal external genitalia Neurologic/Psychiatric: abnormal gait - unsteady , alert, responsive Musculoskeletal: atrophy - BLE Laboratory Tests 06/24/17 04:30: White Blood Count 9.1, Red Blood Count 3.89L, Hemoglobin 10.9L, Hematocrit 33.4L , Mean Corpuscular Volume 86, Mean Corpuscular Hemoglobin 28.0, Mean Corpuscular Hemoglobin Concent 32.6, Red Cell Distribution Width 12.3, Platelet Count 204, Mean Platelet Volume 11.5H, Neutrophils (%) (Auto) 47.5, Lymphocytes (%) (Auto) 38.3, Monocytes (%) (Auto) 9.6, Eosinophils (%) (Auto) 3.8H, Basophils (%) (Auto) 0.9, Sodium Level 141, Potassium Level 4.2, Chloride Level 100, Carbon Dioxide Level 32H, Anion Gap 9, Blood Urea Nitrogen 11, Creatinine 0.7, Estimat Glomerular Filtration Rate , Glucose Level 100, Calcium Level 9.3 Current Medications Medications (Trade) Dose Ordered Sig/Piyush Route PRN Reason Start Time Stop Time Status Last Admin Dose Admin Acetaminophen (Tylenol) 650 mg Q4H PRN ORAL fever 06/19/17 22:15 07/19/17 22:14 Acetaminophen (Tylenol) 650 mg Q6H PRN ORAL Mild Pain (Pain Scale 1-3) 06/19/17 22:30 07/19/17 22:29 Al Hydroxide/Mg Hydroxide (Mylanta II) 30 ml Q6H PRN ORAL dyspepsia 06/19/17 22:15 07/19/17 22:14 Amlodipine Besylate (Norvasc) 5 mg DAILY ORAL 06/21/17 09:00 07/21/17 08:59 06/23/17 08:38 Clonidine HCl (Catapres) 0.1 mg Q2H PRN ORAL SBP > 170 06/20/17 15:00 07/20/17 14:59 Dextrose (Dextrose 50%) STAT PRN IV Hypoglycemia 06/19/17 22:15 07/19/17 22:14 06/23/17 08:12 Docusate Sodium (Colace) 100 mg TWICE A DAY ORAL 06/23/17 16:00 07/23/17 15:59 06/23/17 19:03 Heparin Sodium (Porcine) (Heparin 5000 units/ml) 5,000 units EVERY 12 HOURS SUBQ 06/20/17 09:00 07/20/17 08:59 06/23/17 20:52 Insulin Aspart (NovoLOG) BEFORE MEALS AND HS SUBQ 06/20/17 06:30 07/20/17 06:29 06/23/17 20:54 Insulin Aspart (NovoLOG) 5 units NOVOTIAC SUBQ 06/23/17 13:00 07/23/17 12:59 06/23/17 17:16 Insulin Detemir (Levemir) 15 units BEDTIME SUBQ 06/23/17 21:00 07/23/17 20:59 06/23/17 20:53 Lorazepam (Ativan 2mg/ml 1ml) 0.5 mg Q4H PRN IV For Anxiety 06/19/17 22:15 06/26/17 22:14 Ondansetron HCl (Zofran) 4 mg Q6H PRN IVP Nausea & Vomiting 06/19/17 22:15 07/19/17 22:14 Polyethylene Glycol (Miralax) 17 gm HSPRN PRN ORAL Constipation 06/19/17 22:15 07/19/17 22:14 Tramadol HCl (Ultram) 50 mg BID PRN ORAL For Pain 06/21/17 19:00 06/28/17 18:59 06/23/17 17:14 Zolpidem Tartrate (Ambien) 5 mg HSPRN PRN ORAL Insomnia 06/19/17 22:15 07/19/17 22:14 [facility] HospitalM[facility] Quiros NP Jun 24, 2017 07:47
[2017-06-24 08:05] VITALS: BP 124/62
--- NOTE | 2017-06-24 08:49 | Infectious Diseases Prog Note ---
Assessment/Plan Problems: (1) Failure to thrive in adult Assessment & Plan: will screen for HIV, syphilis and hepatitis (2) Polymyalgia rheumatica syndrome Assessment & Plan: continue paian management and exercise (3) Diabetic sensorimotor polyneuropathy Assessment & Plan: consider Neurontin and titrate dose to control her symptoms (4) Diabetes mellitus Assessment & Plan: recommend tight glycemic control to keep blood glucose less than 120 fasting and less than 130 pre meals. Subjective Allergies: Coded Allergies: CODEINE (Verified Allergy, Unknown, 06/19/17) LATEX (Verified Allergy, Unknown, 06/19/17) PENICILLINS (Verified Allergy, Unknown, 06/19/17) Objective Vital Signs Last 24 Hour Vital Signs Date Time Temp Pulse Resp B/P Pulse Ox O2 Delivery O2 Flow Rate FiO2 06/24/17 08:05 97.7 88 21 124/62 97 Room Air 06/24/17 04:00 98.2 85 18 124/73 99 Room Air 06/24/17 00:00 97.7 86 21 139/79 99 Room Air 06/23/17 20:00 97.9 91 20 153/78 99 Room Air 06/23/17 16:01 98.1 81 18 122/69 99 Room Air 06/23/17 12:00 97.5 86 20 141/70 97 Room Air Height (Feet): 5 Height (Inches): 4.00 Weight (Pounds): 130 Laboratory Tests Test 06/24/17 04:30 White Blood Count 9.1 K/UL (4.8-10.8) Red Blood Count 3.89 M/UL (4.20-5.40) L Hemoglobin 10.9 G/DL (12.0-16.0) L Hematocrit 33.4 % (37.0-47.0) L Mean Corpuscular Volume 86 FL (80-99) Mean Corpuscular Hemoglobin 28.0 PG (27.0-31.0) Mean Corpuscular Hemoglobin Concent 32.6 G/DL (32.0-36.0) Red Cell Distribution Width 12.3 % (11.6-14.8) Platelet Count 204 K/UL (150-450) Mean Platelet Volume 11.5 FL (6.5-10.1) H Neutrophils (%) (Auto) 47.5 % (45.0-75.0) Lymphocytes (%) (Auto) 38.3 % (20.0-45.0) Monocytes (%) (Auto) 9.6 % (1.0-10.0) Eosinophils (%) (Auto) 3.8 % (0.0-3.0) H Basophils (%) (Auto) 0.9 % (0.0-2.0) Sodium Level 141 mEQ/L (135-145) Potassium Level 4.2 mEQ/L (3.4-4.9) Chloride Level 100 mEQ/L (98-107) Carbon Dioxide Level 32 mEQ/L (20-30) H Anion Gap 9 (5-15) Blood Urea Nitrogen 11 mg/dL (7-23) Creatinine 0.7 mg/dL (0.5-0.9) Estimat Glomerular Filtration Rate mL/min (>60) Glucose Level 100 mg/dL (74-106) Calcium Level 9.3 mg/dL (8.6-10.2) Current Medications Medications (Trade) Dose Ordered Sig/Piyush Route PRN Reason Start Time Stop Time Status Last Admin Dose Admin Acetaminophen (Tylenol) 650 mg Q4H PRN ORAL fever 06/19/17 22:15 07/19/17 22:14 Acetaminophen (Tylenol) 650 mg Q6H PRN ORAL Mild Pain (Pain Scale 1-3) 06/19/17 22:30 07/19/17 22:29 Al Hydroxide/Mg Hydroxide (Mylanta II) 30 ml Q6H PRN ORAL dyspepsia 06/19/17 22:15 07/19/17 22:14 Amlodipine Besylate (Norvasc) 5 mg DAILY ORAL 06/21/17 09:00 07/21/17 08:59 06/23/17 08:38 Clonidine HCl (Catapres) 0.1 mg Q2H PRN ORAL SBP > 170 06/20/17 15:00 07/20/17 14:59 Dextrose (Dextrose 50%) STAT PRN IV Hypoglycemia 06/19/17 22:15 07/19/17 22:14 06/23/17 08:12 Docusate Sodium (Colace) 100 mg TWICE A DAY ORAL 06/23/17 16:00 07/23/17 15:59 06/23/17 19:03 Heparin Sodium (Porcine) (Heparin 5000 units/ml) 5,000 units EVERY 12 HOURS SUBQ 7/31/17 09:00 07/20/17 08:59 06/23/17 20:52 Insulin Aspart (NovoLOG) BEFORE MEALS AND HS SUBQ 06/20/17 06:30 07/20/17 06:29 06/23/17 20:54 Insulin Aspart (NovoLOG) 5 units NOVOTIAC SUBQ 06/23/17 13:00 07/23/17 12:59 06/23/17 17:16 Insulin Detemir (Levemir) 15 units BEDTIME SUBQ 06/23/17 21:00 07/23/17 20:59 06/23/17 20:53 Lorazepam (Ativan 2mg/ml 1ml) 0.5 mg Q4H PRN IV For Anxiety 06/19/17 22:15 06/26/17 22:14 Ondansetron HCl (Zofran) 4 mg Q6H PRN IVP Nausea & Vomiting 06/19/17 22:15 07/19/17 22:14 Polyethylene Glycol (Miralax) 17 gm HSPRN PRN ORAL Constipation 06/19/17 22:15 07/19/17 22:14 Tramadol HCl (Ultram) 50 mg BID PRN ORAL For Pain 06/21/17 19:00 06/28/17 18:59 06/23/17 17:14 Zolpidem Tartrate (Ambien) 5 mg HSPRN PRN ORAL Insomnia 06/19/17 22:15 07/19/17 22:14 Bo Baker M.D. Jun 24, 2017 08:49
[2017-06-24] MEDS: Docusate 100mg cap ORAL SCH ×2 (09:02→16:57)
[2017-06-24] MEDS: Heparin 5000 units/ml inj SUBQ SCH (09:03)
[2017-06-24 11:46] VITALS: BP 141/79
[2017-06-24 12:13] LABS: VITAMIN D 25-OH TOTAL 6.9 ng/mL (.)
--- NOTE | 2017-06-24 13:47 | General Progress Note ---
Assessment/Plan Problem List: (1) Proteinuria ICD Codes: R80.9 - Proteinuria, unspecified SNOMED: 64248585 Qualifiers: Qualified Codes: R80.9 - Proteinuria, unspecified (2) Pedal edema ICD Codes: R60.0 - Localized edema SNOMED: 204199511 (3) Polymyalgia rheumatica syndrome ICD Codes: M35.3 - Polymyalgia rheumatica SNOMED: 08864384, 38232602 (4) Dehydration ICD Codes: E86.0 - Dehydration SNOMED: 95230878, 57692665 (5) Failure to thrive in adult ICD Codes: R62.7 - Adult failure to thrive SNOMED: 773202852, 16864843 (6) Diabetic sensorimotor polyneuropathy ICD Codes: E11.42 - Type 2 diabetes mellitus with diabetic polyneuropathy SNOMED: 07863172, 118887436 (7) Hyperglycemia due to type 2 diabetes mellitus ICD Codes: E11.65 - Type 2 diabetes mellitus with hyperglycemia SNOMED: 231080604826139, 78825026 Qualifiers: Qualified Codes: E11.65 - Type 2 diabetes mellitus with hyperglycemia (8) Diabetes mellitus ICD Codes: E11.9 - Type 2 diabetes mellitus without complications SNOMED: 36431850 (9) Hypertension ICD Codes: I10 - Essential (primary) hypertension SNOMED: 08845504 Status: stable, progressing, tolerating diet Assessment/Plan ot pt diet bp bs control dc to snf Subjective Constitutional: Reports: weakness Allergies: Coded Allergies: CODEINE (Verified Allergy, Unknown, 06/19/17) LATEX (Verified Allergy, Unknown, 06/19/17) PENICILLINS (Verified Allergy, Unknown, 06/19/17) All Systems: reviewed and negative except above Subjective calm weak in bed Objective Last 24 Hour Vital Signs Date Time Temp Pulse Resp B/P Pulse Ox O2 Delivery O2 Flow Rate FiO2 06/24/17 11:49 149 85 95 06/24/17 11:46 97.7 85 20 141/79 98 Room Air 06/24/17 09:03 88 124/62 06/24/17 08:05 97.7 88 21 124/62 97 Room Air 06/24/17 04:00 98.2 85 18 124/73 99 Room Air 06/24/17 00:00 97.7 86 21 139/79 99 Room Air 06/23/17 20:00 97.9 91 20 153/78 99 Room Air 06/23/17 16:01 98.1 81 18 122/69 99 Room Air Intake and Output 06/23/17 06/24/17 19:00 07:00 Intake Total 1200 ml 240 ml Balance 1200 ml 240 ml Intake Oral 1200 ml 240 ml # Voids 5 4 Laboratory Tests 06/24/17 04:30: White Blood Count 9.1, Red Blood Count 3.89L, Hemoglobin 10.9L, Hematocrit 33.4L , Mean Corpuscular Volume 86, Mean Corpuscular Hemoglobin 28.0, Mean Corpuscular Hemoglobin Concent 32.6, Red Cell Distribution Width 12.3, Platelet Count 204, Mean Platelet Volume 11.5H, Neutrophils (%) (Auto) 47.5, Lymphocytes (%) (Auto) 38.3, Monocytes (%) (Auto) 9.6, Eosinophils (%) (Auto) 3.8H, Basophils (%) (Auto) 0.9, Sodium Level 141, Potassium Level 4.2, Chloride Level 100, Carbon Dioxide Level 32H, Anion Gap 9, Blood Urea Nitrogen 11, Creatinine 0.7, Estimat Glomerular Filtration Rate , Glucose Level 100, Calcium Level 9.3, Rapid Plasma Reagin [Pending], Hepatitis A IgM Antibody [Pending], Hepatitis B Surface Antigen [Pending], Hepatitis C Antibody [Pending], HIV (1&2) Antibody Rapid Negative Height (Feet): 5 Height (Inches): 4.00 Weight (Pounds): 130 General Appearance: lethargic EENT: normal ENT inspection Neck: normal alignment Cardiovascular: normal peripheral pulses, normal rate, regular rhythm Respiratory/Chest: chest wall non-tender, lungs clear, normal breath sounds Abdomen: normal bowel sounds, non tender, soft Extremities: normal inspection Edema: no edema noted Arm (L), no edema noted Arm (R), no edema noted Leg (L), no edema noted Leg (R), no edema noted Pedal (L), no edema noted Pedal (R), no edema noted Generalized Neurologic: responsive, motor weakness Skin: normal pigmentation, warm/dry CATARINA CHILDS Jun 24, 2017 13:47
[2017-06-24] MEDS ORDERED: Bisacodyl EC 5mg tab ORAL ONE (14:05)
[2017-06-24] MEDS ORDERED: TYLENOL650 MG/20. ORAL (15:39)
[2017-06-24] MEDS ORDERED: LEVEMIR100 UNIT/1 SUBQ (15:51)
[2017-06-24] MEDS ORDERED: MIRALAX17 G2 ORAL (15:52)
[2017-06-24] MEDS ORDERED: VITAMIN D1000 UNI1 ORAL (15:53)
[2017-06-24] MEDS ORDERED: AMBIEN5 MG ORAL (15:53)
[2017-06-24] MEDS ORDERED: NORVASC5 MG ORAL (15:53)
[2017-06-24] MEDS ORDERED: CATAPRES0.1 MG ORAL (15:54)
[2017-06-24] MEDS ORDERED: TRAMADOL HCL50 MG ORAL (15:55)
[2017-06-24] MEDS ORDERED: FOSAMAX70 MG ORAL (15:55)
[2017-06-24] MEDS ORDERED: DOCUSATE SODIU100 MG ORAL (15:56)
[2017-06-24] MEDS ORDERED: NOVOLIN R100 UNIT/1 SUBQ (15:57)
[2017-06-24] MEDS ORDERED: NOVOLOG100 UNIT/5 SQ (15:58)
[2017-06-24 16:00] VITALS: BP 150/60
--- NOTE | 2017-06-24 17:10 | Cardiac Electrophysiology PN ---
Assessment/Plan Assessment/Plan 1. Hypertension. Continue Norvasc 5 mg daily. EF 70% to 75%. 2. Diabetes. 3. Generalized weakness. 4. Sedimentation rate of more than 100. 5. History of paranoid ideation. 6. Polymyalgia rheumatica. 7. Diabetic polyneuropathy. KEVIN RN DC planning today Subjective Subjective Comfortable in NAD on NMB. RN at bedside.Expecting discharge today. Objective Last 24 Hour Vital Signs Date Time Temp Pulse Resp B/P Pulse Ox O2 Delivery O2 Flow Rate FiO2 06/24/17 16:00 96.8 92 21 150/60 99 Room Air 06/24/17 11:49 149 85 95 06/24/17 11:46 97.7 85 20 141/79 98 Room Air 06/24/17 09:03 88 124/62 06/24/17 08:05 97.7 88 21 124/62 97 Room Air 06/24/17 04:00 98.2 85 18 124/73 99 Room Air 06/24/17 00:00 97.7 86 21 139/79 99 Room Air 06/23/17 20:00 97.9 91 20 153/78 99 Room Air Intake and Output 06/23/17 06/24/17 19:00 07:00 Intake Total 1200 ml 240 ml Balance 1200 ml 240 ml Intake Oral 1200 ml 240 ml # Voids 5 4 Laboratory Tests Test 06/24/17 04:30 White Blood Count 9.1 K/UL (4.8-10.8) Red Blood Count 3.89 M/UL (4.20-5.40) L Hemoglobin 10.9 G/DL (12.0-16.0) L Hematocrit 33.4 % (37.0-47.0) L Mean Corpuscular Volume 86 FL (80-99) Mean Corpuscular Hemoglobin 28.0 PG (27.0-31.0) Mean Corpuscular Hemoglobin Concent 32.6 G/DL (32.0-36.0) Red Cell Distribution Width 12.3 % (11.6-14.8) Platelet Count 204 K/UL (150-450) Mean Platelet Volume 11.5 FL (6.5-10.1) H Neutrophils (%) (Auto) 47.5 % (45.0-75.0) Lymphocytes (%) (Auto) 38.3 % (20.0-45.0) Monocytes (%) (Auto) 9.6 % (1.0-10.0) Eosinophils (%) (Auto) 3.8 % (0.0-3.0) H Basophils (%) (Auto) 0.9 % (0.0-2.0) Sodium Level 141 mEQ/L (135-145) Potassium Level 4.2 mEQ/L (3.4-4.9) Chloride Level 100 mEQ/L (98-107) Carbon Dioxide Level 32 mEQ/L (20-30) H Anion Gap 9 (5-15) Blood Urea Nitrogen 11 mg/dL (7-23) Creatinine 0.7 mg/dL (0.5-0.9) Estimat Glomerular Filtration Rate mL/min (>60) Glucose Level 100 mg/dL (74-106) Calcium Level 9.3 mg/dL (8.6-10.2) Prealbumin Pending Rapid Plasma Reagin Pending Hepatitis A IgM Antibody Pending Hepatitis B Surface Antigen Pending Hepatitis C Antibody Pending HIV (1&2) Antibody Rapid Negative (NEGATIVE) Objective HEAD AND NECK: Shows no JVD. LUNGS: Decreased breath sounds. CARDIOVASCULAR: Regular S1 and S2 with no gallop. ABDOMEN: Soft. EXTREMITIES: There is 1+ pitting edema. KARIE FAN Jun 24, 2017 17:10
--- NOTE | 2017-06-24 22:15 | Consultation ---
DATE OF CONSULTATION: 06/24/2017 INFECTIOUS DISEASES CONSULTATION REQUESTING PHYSICIAN: Pranav Fitzgerald D.O. REASON FOR CONSULTATION: Failure to thrive, rule out infectious etiology. HISTORY OF PRESENT ILLNESS: The patient is a 80-year-old female with history of hypertension, heart failure, and diabetes who was sent to the hospital for weakness and poor oral intake. The patient had hard time getting out of bed. She had more edema and swelling. Denied any cough or phlegm. No fever or chills. No nausea or vomiting. No chest pain. The patient was found to have fluid overload and edema, probably due to CHF. So, she was admitted to the hospital for workup of failure to thrive, fluid overload, and I was consulted by the primary provider to rule out infectious etiology. As of now, the patient is a poor historian, could not provide good history. History was mainly obtained from the medical records. PAST MEDICAL HISTORY: Significant for CHF, diabetes, and thyroid disease. PAST SURGICAL HISTORY: Negative. MEDICATIONS: She is on vitamin D, Dulcolax, Fosamax, Levemir, Colace, NovoLog, Ultram, Norvasc, Catapres, and heparin. ALLERGIES: She is allergic to codeine, Latex, and penicillin. SOCIAL HISTORY: She denies using any drugs, tobacco, or alcohol. FAMILY HISTORY: Noncontributory. REVIEW OF SYSTEMS: Unable to obtain at this point. The patient is a poor historian. LABORATORY AND DIAGNOSTIC DATA: Labs showed white count of 9.1, hemoglobin of 10.9, and platelet count of 204,000. BUN of 11 and creatinine of 0.7. Urinalysis was negative for UTI. Imaging, chest x-ray on admission showed no acute process. Venous Doppler showed patent deep vein system bilaterally. No evidence of thrombus within the femoral, popliteal, or tibial segments. PHYSICAL EXAMINATION: VITAL SIGNS: Temperature 97.7 degrees, pulse 85, respirations 20, blood pressure 141/79, and saturation 98% on room air. GENERAL: An elderly female, lying in bed, awake, alert, not in distress. HEENT: Normocephalic and atraumatic. Pupils are reactive to light. Dry oral mucosa. NECK: Supple. No lymphadenopathy. CARDIOVASCULAR: Regular rate and rhythm. No murmur. LUNGS: Clear bilaterally. Diminished breathing sounds at the bases. ABDOMEN: Soft, nontender, and nondistended. Positive bowel sounds. No hepatosplenomegaly or ascites. EXTREMITIES: Edema +1. No cyanosis. SKIN: No rash or hives. ASSESSMENT AND RECOMMENDATION: 1. Failure to thrive. We will screen the patient for human immunodeficiency virus, syphilis, and hepatitis. Recommend dietary consult. 2. Polymyalgia rheumatica. Continue pain management and exercise. 3. Diabetes complicated with polyneuropathy. Consider Neurontin and titrate dose to control her symptoms. 4. Diabetes. Recommend tight glycemic control to keep blood glucose less than 110 fasting and less than 130 after meals. 5. Congestive heart failure exacerbation with fluid overload. Continue diuresis. Monitor daily weights. Bo Baker M.D. DR: Nancy JOB#: [id number] CC:
[2017-06-25] MEDS ORDERED: Vitamin D 1000 IU Tab ORAL SCH (09:00)
--- NOTE | 2017-06-27 08:00 | Consultation ---
DATE OF CONSULTATION: 06/23/2017 CONSULTING PHYSICIAN: Lalo House M.D. History Of Present Illness: The patient is a 81-year-old female patient. The patient is brought to the hospital due to failure to thrive. The patient was very weak, has history of hypertension, lethargic, and had increased weakness and confusion. 00:52of this patient, the patient was confused, very weak, disorganized in her thought process. The patient had no viable or logical plan for her self care. The patient did not express understanding 01:09 for her current medical diagnosis treatment 01:14. She was care for her basic needs. The patient is unable to provide any logical or viable answer. The patient states that she is unable to verify herself without the help of her daughter. States that her daughter 01:32 come and care for her. The patient has very poor insight, poor judgment at this time regarding her own safety and self-care. At this time, the patient has poor insight into her current condition. Unable to provide any logical, reasonable, viable plan for self care. Provide an understanding of her current medical condition and is unable 02:15 to make any medical decisions for herself at this time 02:22 due to her confusion and disorganization. PAST MEDICAL HISTORY: History of diabetes and hypertension. ALLERGIES: The patient is allergic to penicillin and codeine. SUBSTANCE ABUSE HISTORY: There is no indication of alcohol use, illicit substance use, or smoking cigarette. Past Psychiatric History: 02:47. MENTAL STATUS EXAMINATION: The patient is alert and oriented x2 to person and place. Mood is irritable. Affect is blunted. Thought process is slightly disorganized. The patient is confused. The patient has had poor attention and concentration. Poor insight, judgment, and impulse control. DIAGNOSES: AXIS I Rule out major neurocognitive disorder, Alzheimer's type without behavioral disturbances, 03:15 AXIS II Deferred. AXIS III Per History and Physical. PLAN: Continue with medication management and behavioral management. Lalo House PsyD. DR: DARRELL JOB#: [id number] CC:
--- NOTE | 2017-06-27 08:00 | Geriatric Medicine Prog Note ---
DATE: 06/24/2017 Subjective: The patient 00:08 facility soon. OBJECTIVE: VITAL SIGNS: Stable. LUNGS: Clear. CVS: Regular. Laboratory Data: Glucose 200 00:14. Assessment: 00:21. Plan: 00:18 Levemir insulin 15 units hours and NovoLog 5 units [email or web address] curiel Grant Camacho M.D. DR: SANDEE JOB#: [id number] CC:
--- NOTE | 2017-06-27 10:25 | Discharge Summary ---
Discharge Summary Hospital Course Date of Admission Jun 19, 2017 at 21:58 Date of Discharge Jun 24, 2017 at 21:45 Admitting Diagnosis Failure to thrive MYA Soto is a 81 year old female who was admitted on Jun 19, 2017 at 21 :58 for Failure To Thrive Hospital Course dc summary #[id number] Discharge Medications Continued Medications: Acetaminophen (Acetaminophen) 650 Mg/20.3 Ml Solution 650 MG ORAL Q4HR PRN for Prn Headache/Temp > 101, ML 0 Refills Alendronate Sodium* (Fosamax*) 70 Mg Tablet 70 MG ORAL ONCE A WEEK, TAB Amlodipine Besylate (Norvasc) 5 Mg Tablet 5 MG ORAL DAILY, TAB Cholecalciferol (Vitamin D3)* (Vitamin D*) 1,000 Unit Tablet 1000 UNIT ORAL DAILY, #30 TAB Clonidine Hcl* (Catapres*) 0.1 Mg Tablet 0.1 MG ORAL PRN for For High Blood Pressure, #90 TAB 0 Refills Docusate Sodium* (Docusate Sodium*) 100 Mg Capsule 100 MG ORAL TWICE A DAY, CAP Insulin Aspart (Novolog) 100 Unit/1 Ml Vial 5 SQ AC+HS Insulin Detemir (Levemir) 100 Unit/1 Ml Vial 15 SUBQ BEDTIME, VIAL Insulin Regular, Human* (Novolin R*) 100 Unit/1 Ml Vial 0 SUBQ AC, UNITS No Known Medications* (NKM - No Known Medications*) . 0 ., 0 Refills Polyethylene Glycol 3350* (Miralax*) 17 Gm Powd.pack 17 GM ORAL HS, PACKET Tramadol Hcl* (Ultram*) 50 Mg Tablet 50 MG ORAL BID PRN for For Pain, #30 TAB 0 Refills Zolpidem Tartrate* (Ambien*) 5 Mg Tablet 5 MG ORAL BEDTIME PRN for Insomnia, TAB Discharge Condition Upon Discharge: stable Discharge Disposition Patient was discharged to Home () Discharge Diagnoses: Timmy (Raman)Maki NP Jun 27, 2017 10:25
[2017-06-27 12:51] LABS: HEPATITIS C VIRUS AB/CEDARS 0.14 S/CO (<0.80)
--- NOTE | 2017-06-28 05:45 | Discharge Summary 2 SIG ---
DATE OF ADMISSION: 06/19/2017 DATE OF DISCHARGE: 06/24/2017 REASON FOR ADMISSION: This is a 81-year-old female with a history of hypertension and diabetes, presented with complaint of the generalized weakness for two weeks. She had a hard time getting in and out of chair. She reported increased leg swelling and generalized body pain. No nausea. No vomiting. No fever. No chills. No chest pain. No shortness of breath. The patient reported similar symptoms in the past. Workup in the emergency room revealed stable vital signs and elevated ESR. The patient was diagnosed with diabetic sensorimotor polyneuropathy, rule out polymyalgia rheumatica, rule out collagen vascular disease, hyperglycemia, diabetes, and hypertension. The patient was admitted for further management. SHORT HOSPITAL STAY: The patient was admitted. Neurology consult was requested. Per Neurology, the patient with generalized aches and pains of unknown etiology needs to be ruled out for collagen vascular disease, rule out polymyalgia rheumatica, and rule out fibromyalgia. The patient likely has a diabetic sensorimotor polyneuropathy as well since she presented with sensory loss and areflexia in both upper and lower extremities. Workup for collagen vascular disease was initiated. The patient had a negative DONNY screen and negative rheumatoid factor. Hepatitis panel was negative. HIV status was negative. RPR was negative. Unfortunately, unable to get pocketed spring machine operator during the hospital stay, not available at that time. The patient was provided with gentle IV fluids. Venous duplex of bilateral lower extremity was negative. Pain management provided. The patient was working with physical and occupational therapy. DVT prophylaxis provided. Supplemental oxygen provided as needed to keep saturation above 92%. Pulmonary toilet provided as needed. Chest x-ray revealed no acute cardiopulmonary disease. Bowel regimen instituted. Grove Superintendent closely followed. Echocardiogram revealed preserved ejection fraction of 70% to 75% and right ventricular systolic pressure of 21. Blood pressure was managed with calcium channel eleonora. Blood sugar was managed with Levemir and premeal NovoLog. Training Program Assistant closely followed. The patient complained of the right shoulder pain. Subsequently right shoulder x-ray was done, which revealed osteoporosis. Vitamin D level low. The patient was started on vitamin D replacement along with Fosamax weekly. Prealbumin within normal limits 12. The patient was on calorie count. Dietary recommendation appreciated and implemented Glucerna added as recommended by dietary. The patient has a history of paranoid ideation. Psychiatric evaluation was requested. The patient's psychiatrist optimized psychiatric medication and wanted to rule out major neurocognitive disorder. The patient was stable for discharge back to [facility] facility. Follow up with medical doctor at the facility. DISCHARGE DIAGNOSES: 1. Diabetic sensorimotor polyneuropathy. 2. Polymyalgia rheumatica syndrome. 3. Hypertension. 4. Diabetes mellitus. 5. Dehydration. 6. Osteoporosis. 7. Vitamin D deficiency. 8. Likely protein-calorie malnutrition. 9. History of paranoid ideation. DISCHARGE MEDICATIONS: See medication reconciliation list. DISCHARGE INSTRUCTIONS: The patient was discharged to [facility] facility. FOLLOWUP: Follow up with medical doctor at the facility. Pranav Fitzgerald D.O. I have been assigned to dictate discharge summary on this account and I was not involved in the patient's management. Maki [facility] NAminataPAminata DR: Francie JOB#: [id number] CC:
== END 2017-06-24 21:45 | DRG 74 ==
LOC: EDBD 19:28 → EMR 20:00 → EDBEDREQ 21:50 → EDBD 21:58 → 4E 21:58 → EDBEDREQ 22:02 → 4W 06-21 08:01
DX: E11.42 Type 2 diabetes mellitus with diabetic polyneuropathy (principal); E46 Unspecified protein-calorie malnutrition; E11.65 Type 2 diabetes mellitus with hyperglycemia; E86.0 Dehydration; M35.3 Polymyalgia rheumatica; I10 Essential (primary) hypertension; M81.0 Age-related osteoporosis without current pathological fracture; Z79.4 Long term (current) use of insulin; R62.7 Adult failure to thrive; Z88.6 Allergy status to analgesic agent; Z88.0 Allergy status to penicillin; D64.9 Anemia, unspecified; E55.9 Vitamin D deficiency, unspecified; R60.0 Localized edema; F22 Delusional disorders
CPT/HCPCS: 36415; 71010; 80048; 80053; 80061; 81003; 82248; 82306; 82550; 82553; 82607; 82962; 83880; 84134; 84443; 84446; 84484; 85007; 85025; 85610; 85651; 85730; 86021; 86039; 86140; 86431; 86592; 86703; 86706; 86709; 86803; 93005; 93306; 93970; 97803; J1815; J8499; S5561